=== PATIENT | male | born 1940 | race African-American/Black ===

== ENCOUNTER 2018-03-29 17:21 | Emergency (ER) | payer MEDICARE ==
[2018-03-29 17:33] VITALS: BP 130/66
--- NOTE | 2018-03-29 18:54 | ER Document Report ---
HPI - HPI Patient complains to provider of: Medication refill Onset: Other - Patient has last refill a month ago Onset/Duration: Gradual Quality of pain: No pain Severity: None Pain Level: Denies Context: 27-year-old male presents to ED for med refills. He states he was unable to get to the ID clinic today and his meds have all run out. He states he came here from [place] to stay with his son and he was supposed to stay for month and then go to [place] but is unable to go to [place] until the beginning of the year. He states all of his paperwork and prescriptions were sent to [place] and now he has run out of medications. Associated Symptoms: Other - Medications Exacerbated by: Denies Relieved by: Denies Similar symptoms previously: Yes Recently seen / treated by doctor: No Past Medical History - General Information source: Patient, Relative - Social History Smoking Status: Former Smoker Cigarette use (# per day): No Chew tobacco use (# tins/day): No Smoking Education Provided: No Frequency of alcohol use: None Drug Abuse: None Lives with: Family Family History: Reviewed & Not Pertinent Patient has suicidal ideation: No Patient has homicidal ideation: No - Past Medical History Cardiac Medical History: Reports: Hx Hypercholesterolemia, Hx Hypertension Pulmonary Medical History: Reports: None EENT Medical History: Reports: None Neurological Medical History: Reports: Hx Cerebrovascular Accident, Hx Seizures Endocrine Medical History: Reports: None Renal/ Medical History: Reports: Hx Benign Prostatic Hyperplasia, Hx Renal Insufficiency Malignancy Medical History: Reports None GI Medical History: Reports: Hx Gastroesophageal Reflux Disease, Hx Colonoscopy , Hx Endoscopy Musculoskeltal Medical History: Reports Hx Arthritis, Reports Hx Musculoskeletal Deformity Skin Medical History: Reports None Traumatic Medical History: Reports: None Infectious Medical History: Reports: None Vertical Provider Document - CONSTITUTIONAL Agree With Documented VS: Yes Exam Limitations: No Limitations General Appearance: WD/WN, No Apparent Distress - INFECTION CONTROL TRAVEL OUTSIDE OF THE [place] IN LAST 30 DAYS: No - HEENT HEENT: Atraumatic, Normal ENT Exam, Normocephalic - RESPIRATORY Respiratory: Breath Sounds Normal, No Respiratory Distress, Chest Non-Tender - CARDIOVASCULAR Cardiovascular: Regular Rate, Regular Rhythm - MUSCULOSKELETAL/EXTREMETIES Musculoskeletal/Extremeties: MAEW, FROM, Non-Tender - NEURO Level of Consciousness: Awake, Alert, Appropriate - DERM Integumentary: Warm, Dry, No Rash Course - Re-evaluation Re-evalutation: 03/29/18 21:24 Patient is seen today for med refills. He states that he tried to go to the ID and they were unable to seeing him today. He states he will not be able to get to the ID until next week sometime. He states he is out of all of his medications. He states that he was told by the ID would be at least 10 days before they could get his prescriptions filled and to him. - Vital Signs Vital signs: Temp Pulse Resp BP Pulse Ox 98.5 F 88 18 130/66 H 97 03/29/18 17:32 03/29/18 17:32 03/29/18 17:32 03/29/18 17:32 03/29/18 17:32 Discharge - Discharge Clinical Impression: Medication refill Condition: Stable Disposition: HOME, SELF-CARE Additional Instructions: He was seen today for medication refills for all your medications as you stated that she had not gotten a refill from ID and they told you would be about 10 days. Please follow-up with your primary doctor at the ID clinic to get these refilled before these medications ran out FOLLOW-UP CARE: If you have been referred to a physician for follow-up care, call the physician s office for an appointment as you were instructed or within the next two days. If you experience worsening or a significant change in your symptoms, notify the physician immediately or return to the Emergency Department at any time for re-evaluation. Prescriptions: Finasteride 5 mg PO QHS #14 tablet Phenytoin Sodium Extended [Dilantin] 400 mg PO QHS #14 capsule Terazosin HCl 10 mg PO QHS #14 capsule Amlodipine Besylate 5 mg PO DAILY #14 tab Atorvastatin Calcium [Lipitor] 80 mg PO DAILY #14 tablet Folic Acid 1 mg PO DAILY #14 tablet Furosemide [Lasix] 20 mg PO DAILY #14 tablet Metoprolol Succinate [Toprol Xl] 100 mg PO DAILY #14 tab.er.24h Oxybutynin Chloride [Oxybutynin Chloride ER] 10 mg PO DAILY #14 tab.er.24 Pantoprazole Sodium 40 mg PO DAILY #14 tablet.dr Forms: Elevated Blood Pressure
== END 2018-03-29 19:02 | disposition home or self-care (01) ==
LOC: ER 17:21
DX: Z76.0 Encounter for issue of repeat prescription (principal); I10 Essential (primary) hypertension; N40.0 Benign prostatic hyperplasia without lower urinary tract symptoms; E78.00 Pure hypercholesterolemia, unspecified; K21.9 Gastro-esophageal reflux disease without esophagitis; Z87.891 Personal history of nicotine dependence
CPT/HCPCS: 99281

== ENCOUNTER 2018-05-07 17:08 | Emergency (ER) | payer OTHER, MEDICARE ==
[2018-05-07 17:17] VITALS: BP 136/61
--- NOTE | 2018-05-07 17:37 | ER Document Report ---
ED General - General Chief Complaint: Medication Refill Stated Complaint: MEDICATION REFILL Time Seen by Provider: 05/07/18 17:32 Notes: 77-year-old male here requesting refill of his Keppra. He used to be on phenobarbital however was switched to Keppra by his doctor. [facility] He has put in paperwork to have them send him the correct medication, Keppra, however this has not yet occurred and they have not yet sent him his correct medication. They tried to be seen by his PCP, Dr. Moses, however his office was already closed. He denies any other symptoms or needs. No seizures. Last dose of Keppra was yesterday evening. TRAVEL OUTSIDE OF THE [place] IN LAST 30 DAYS: No - Related Data Allergies/Adverse Reactions: No Known Allergies Allergy (Verified 05/07/18 17:33) Past Medical History - Social History Smoking Status: Unknown if Ever Smoked Family History: Reviewed & Not Pertinent - Past Medical History Cardiac Medical History: Reports: Hx Hypercholesterolemia, Hx Hypertension Neurological Medical History: Reports: Hx Cerebrovascular Accident, Hx Seizures Renal/ Medical History: Reports: Hx Benign Prostatic Hyperplasia, Hx Renal Insufficiency. Denies: Hx Peritoneal Dialysis GI Medical History: Reports: Hx Gastroesophageal Reflux Disease, Hx Colonoscopy , Hx Endoscopy Musculoskeletal Medical History: Reports Hx Arthritis, Reports Hx Musculoskeletal Deformity Review of Systems - Review of Systems Notes: See history of present illness for pertinent positive review of systems; otherwise all review of systems have been reviewed and are negative Physical Exam - Vital signs Vitals: Temp Pulse Resp BP Pulse Ox 98.4 F 56 L 14 136/61 H 99 05/07/18 17:15 05/07/18 17:15 05/07/18 17:15 05/07/18 17:15 05/07/18 17:15 - Notes Notes: PHYSICAL EXAMINATION: GENERAL: Well-appearing and in no acute distress. HEAD: Atraumatic, normocephalic. EYES: extraocular movements intact, sclera anicteric, conjunctiva are normal. ENT: nares patent Moist mucous membranes. NECK: Normal range of motion LUNGS: CTAB and equal. No wheezes rales or rhonchi. HEART: Regular rate and rhythm without murmurs ABDOMEN: Soft, no tenderness. No facial grimacing/wincing upon palpation. No guarding, no rebound. EXTREMITIES: Normal range of motion, no pitting edema. No cyanosis. PSYCH: Normal mood, normal affect. SKIN: Warm, Dry, normal turgor, no rashes or lesions noted Course - Re-evaluation Re-evalutation: 05/07/18 17:35 MEDICAL DECISION MAKING: Medical screening exam provided and there is no emergency medical condition identified today Will give him a prescription refill for 7 days however instructed follow-up PCP early next week for extended refill Patient (and son present w pt) understands and agrees to the plan of care - Vital Signs Vital signs: Temp Pulse Resp BP Pulse Ox 98.4 F 56 L 14 136/61 H 99 05/07/18 17:15 05/07/18 17:15 05/07/18 17:15 05/07/18 17:15 05/07/18 17:15 Discharge - Discharge Clinical Impression: Medication refill Condition: Good Disposition: HOME, SELF-CARE Additional Instructions: You were seen in the emergency department at [facility]. You received a prescription for 7 days worth of Keppra. Please followup with your primary physician in the next few days for further management/evaluation. Please return to the emergency department for worsening of symptoms or any symptom that you deem to be concerning or life-threatening. Thank you for allowing us to be part of your care. Prescriptions: Levetiracetam [Keppra 500 mg Tablet] 500 mg PO Q12 #14 tablet
== END 2018-05-07 17:38 | disposition home or self-care (01) ==
LOC: ER 17:08
DX: Z76.0 Encounter for issue of repeat prescription (principal); I10 Essential (primary) hypertension
CPT/HCPCS: 99281

== ENCOUNTER 2018-05-21 08:45 | Inpatient (IN) | payer MEDICARE ==
[2018-05-21] MEDS ORDERED: NORMAL SALINE 1000 ML 1,000 ML IV ONE ×2 (09:10→11:36)
[2018-05-21 09:17] LABS: ABSOLUTE EOSINOPHILS # (AUTO) 0.1 10^3/uL (0.0-0.6); ABSOLUTE LYMPHOCYTES (AUTO) 1.5 10^3/uL (0.5-4.7); ABSOLUTE MONOCYTES (AUTO) 0.6 10^3/uL (0.1-1.4); ABSOLUTE NEUT (AUTO) 6.4 10^3/uL (1.7-8.2); BASOPHILS % (AUTO) 0.3 % (0-2); EOSINOPHILS % (AUTO) 1.4 % (0-6); HEMATOCRIT 32.1 % (37.9-51.0); HEMOGLOBIN 11.1 g/dL (13.5-17.0); LYMPHOCYTES % (AUTO) 17.9 % (13-45); MEAN CORPUSCULAR HEMOGLOBIN 30.4 pg (27.0-33.4); MEAN CORPUSCULAR HGB CONC 34.7 g/dL (32.0-36.0); MEAN CORPUSCULAR VOLUME 88 fl (80-97); MONOCYTES % (AUTO) 6.4 % (3-13); PLATELET COUNT 232 10^3/uL (150-450); RED BLOOD COUNT 3.65 10^6/uL (4.35-5.55); RED CELL DISTRIBUTION WIDTH 13.9 % (11.5-14.0); TOTAL CELLS COUNTED % (AUTO) 100 %; WHITE BLOOD COUNT 8.6 10^3/uL (4.0-10.5)
--- NOTE | 2018-05-21 09:18 | ER Document Report ---
ED General - General Chief Complaint: General Weakness Stated Complaint: WEAKNESS Time Seen by Provider: 05/21/18 08:53 TRAVEL OUTSIDE OF THE [place] IN LAST 30 DAYS: No - HPI Notes: Patient is a 77-year-old male with a history of hypertension, pacemaker placemend 2mos ago (on eliquis), hypercholesterolemia, reported seizures who presents to the ED by EMS complaining of generalized weakness, mild headache, and feeling of vision change in the left eye. Pt also has some left leg pain on occasion described as a spasm intermittently. Patient states that he has had a headache for the last 2 days, and has left eye vision changes chronically/ intermittently. Patient states that he is still eating and drinking, but does have a decreased p.o. intake. He is urinating normally and having normal bowel movements. Family is not sure if he has been taking his medicines correctly. Denies any drug allergies. Denies any alcohol or IV drug use. Pt reports having similar symptoms in the past when he has seizures. When asked about when he last had a seizure, pt states that he is actively having one while he is conversing with me and states that he was told by his doctor that his visual change in the left eye means he is having a seizure. Denies any fever, head injury, neck pain, changes in speech/mentation/hearing, URI, sore throat, chest pain, palpitations, syncope, cough, shortness of breath, wheeze, dyspnea, abdominal pain, nausea/vomiting/diarrhea, urinary retention, dysuria, hematuria , loss of control of bowel or bladder, numbness/tingling, saddle anesthesia, muscle paralysis, or rash. 0930: Spoke with daughter in-law who arrived. She states that he is here because he feels too weak to walk, which he is normally able to do and she believes that he is not taking his home meds appropriately. She states that they noticed medicines were in the wrong bottles when he took them out of the daily pill pack and try patient him back into old bottles. He did not take any medicines over the last day as he was directed not to by his family because they were not sure if they were correct or not. Pt does walk everyday outside all day usually. - Related Data Allergies/Adverse Reactions: No Known Allergies Allergy (Verified 05/21/18 09:00) Past Medical History - Social History Smoking Status: Never Smoker Family History: Reviewed & Not Pertinent - Past Medical History Cardiac Medical History: Reports: Hx Hypercholesterolemia, Hx Hypertension Neurological Medical History: Reports: Hx Cerebrovascular Accident, Hx Seizures Renal/ Medical History: Reports: Hx Benign Prostatic Hyperplasia, Hx Renal Insufficiency. Denies: Hx Peritoneal Dialysis GI Medical History: Reports: Hx Gastroesophageal Reflux Disease, Hx Colonoscopy , Hx Endoscopy Musculoskeletal Medical History: Reports Hx Arthritis, Reports Hx Musculoskeletal Deformity Past Surgical History: Reports: Hx Cardiac Surgery - pacemaker Review of Systems - Review of Systems -: Yes All other systems reviewed and negative Physical Exam - Vital signs Vitals: Temp Pulse Resp BP Pulse Ox 97.9 F 69 16 132/60 H 97 05/21/18 08:55 05/21/18 08:55 05/21/18 08:55 05/21/18 08:55 05/21/18 08:55 - Notes Notes: PHYSICAL EXAMINATION: accompanied by female nurse GENERAL: Well-appearing, well-nourished and in no acute distress. A&Ox4. Answers questions appropriately. HEAD: Atraumatic, normocephalic. Non-tender. No lambert sign EYES: Pupils equal round and reactive to light, extraocular movements intact, sclera anicteric, conjunctiva are normal. No nystagmus. Visual acuity is poor in both eyes equally (pt reports that he has glasses at home). ENT: EAC clear b/l. TM's intact b/l without erythema, fluid, or perforation. Nares patent and without discharge. oropharynx clear without exudates. No tonsilar hypertrophy or erythema. Moist mucous membranes. No sinus tenderness. NECK: Normal range of motion, supple without lymphadenopathy. No rigidity. No midline tenderness. LUNGS: Breath sounds clear to auscultation bilaterally and equal. No wheezes rales or rhonchi. HEART: Regular rate and rhythm without murmurs, rubs, gallops. ABDOMEN: Soft, nontender, nondistended abdomen. No guarding, no rebound. No masses appreciated. Normal bowel sounds present. No CVA tenderness bilaterally. Musculoskeletal: Ext b/l: FROM to passive/active. Strength 5+/5. No deficits noted. No bony tenderness of extremities. Back: FROM to passive/active. Strength 5+/5. No vertebral point tenderness, stepoffs, or deformities. Extremities: No cyanosis, clubbing, or edema b/l. Peripheral pulses 2+. Capillary refill less than 2 seconds. No leg asymmetry or ana maría sign. NEUROLOGICAL: NIH 0. GCS 15. Cranial nerves grossly intact. Normal speech. Normal sensory, motor exams. Reflexes 2+ b/l. LEONARDO's negative. Pronator drift negative. Heel/maki, finger/nose wnl. PSYCH: Normal mood, normal affect. SKIN: Warm, Dry, normal turgor, no rashes or lesions noted. Course - Re-evaluation Re-evalutation: 05/21/18 09:41 US performed to the left globe and since Dr. Lacy is not well versed in global US's, I did consult with Dr. Jones. US was unremarkable for acute pathology. 05/21/18 10:29 I did speak with Dr. Luna who reviewed this case at my desk. he recommends a repeat troponin at the 4 hour mina. Aspirin given. Hold on the statin as we do not want that to worsen any rhabdo should this be that; although, lower suspicion. We will consult again with Dr. Luna once those results have been received. Recheck on patient: he is still without any chest pain, sob, dyspnea, palpitations, syncope. 05/21/18 14:26 Troponin and CK are downtrending. Trop 0.416. I did call and speak with Dr. Luna would like this patient to be admitted. Spoke with Dr. Godwin who will come evaluate the patient and accepted to tele. Pt continues to be asymptomatic. Family/pt in agreement with plan. - Vital Signs Vital signs: Temp Pulse Resp BP Pulse Ox 97.9 F 69 31 H 164/84 H 100 05/21/18 08:55 05/21/18 08:55 05/21/18 13:01 05/21/18 13:01 05/21/18 13:01 - Laboratory Result Diagrams: 05/21/18 09:00 05/21/18 09:00 Laboratory results interpreted by me: 05/21/18 05/21/18 05/21/18 09:00 09:00 09:00 RBC 3.65 L Hgb 11.1 L Hct 32.1 L AST 104 H Alkaline Phosphatase 127 H Creatine Kinase 2904 H CK-MB (CK-2) 21.60 H 05/21/18 13:20 RBC Hgb Hct AST Alkaline Phosphatase Creatine Kinase 2784 H CK-MB (CK-2) Discharge - Discharge Clinical Impression: Elevated CK, Weakness Condition: Stable Disposition: ADMITTED INPATIENT Admitting Provider: Hospitalist - Dr. godwin Unit Admitted: Telemetry Referrals: EDWIN FLYNN MD [Primary Care Provider] - Follow up as needed
[2018-05-21 09:21] LABS: PROTHROMBIN TIME 14.8 SEC (11.4-15.4)
[2018-05-21 09:42] LABS: ALANINE AMINOTRANSFERASE 44 U/L (21-72); ALBUMIN 4.2 g/dL (3.5-5.0); ALKALINE PHOSPHATASE 127 U/L (38-126); ANION GAP 14 (5-19); ASPARTATE AMINO TRANSFERASE 104 U/L (17-59); BILIRUBIN,DIRECT 0.2 mg/dL (0.0-0.4); BILIRUBIN,TOTAL 1.2 mg/dL (0.2-1.3); BLOOD UREA NITROGEN 17 mg/dL (7-20); CALCIUM 9.4 mg/dL (8.4-10.2); CARBON DIOXIDE 23 mmol/L (22-30); CHLORIDE 102 mmol/L (98-107); GLUCOSE 98 mg/dL (75-110); POTASSIUM 3.8 mmol/L (3.6-5.0); SODIUM 139.1 mmol/L (137-145); TOTAL PROTEIN 8.1 g/dL (6.3-8.2)
[2018-05-21 09:50] LABS: CREATINE KINASE 2904 U/L (55-170)
--- NOTE | 2018-05-21 09:52 | RADIOLOGY REPORT (SQ) ---
EXAM DESCRIPTION: CT HEAD WITHOUT COMPLETED DATE/TIME: 05/21/2018 9:37 am REASON FOR STUDY: headache, vision change COMPARISON: None. TECHNIQUE: Axial images acquired through the brain without intravenous contrast. Images reviewed wi th bone, brain and subdural windows. Images stored on PACS. All CT scanners at this facility use dose modulation, iterative reconstruction, and/or weight based d osing when appropriate to reduce radiation dose to as low as reasonably achievable (ALARA). [facility]: Dose Right [facility]: CareDose [facility]: Dose Right [facility]: Teradose 4D [facility]: Smart Technologies RADIATION DOSE: CT Rad equipment meets quality standard of care and radiation dose reduction techniq ues were employed. CTDIvol: 53.2 mGy. DLP: 1097 mGy-cm. mGy. LIMITATIONS: None. FINDINGS: VENTRICLES: Mild ex vacuo dilatation right lateral ventricle related to previous surgery a nd encephalomalacia. Left ventricle normal. CEREBRUM: Encephalomalacia in the right temporal lobe. Overlying craniotomy, previous surgery here. No intracranial hemorrhage, mass or shift. Mild low density in the deep periventricular tissues con sistent with small vessel vasculopathy. CEREBELLUM: No masses. No hemorrhage. No alteration of density. No evidence for acute infarction. EXTRAAXIAL SPACES: No fluid collections. No masses. ORBITS AND GLOBE: No intra- or extraconal masses. Normal contour of globe without masses. CALVARIUM: No fracture. PARANASAL SINUSES: No fluid or mucosal thickening. SOFT TISSUES: No mass or hematoma. OTHER: No other significant finding. IMPRESSION: Chronic changes. 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 Small vessel disease. No acute ab normality. EVIDENCE OF ACUTE STROKE: NO. COMMENT: Quality ID # [id number]: Final reports with documentation of one or more dose reduction techniques (e.g., Automated exposure control, adjustment of the mA and/or kV according to patient size, use of iterative reconstruction technique) TECHNICAL DOCUMENTATION: JOB ID: [id number] [employer]- All Rights Reserved Reading location - IP/workstation name: [email or web address]
--- NOTE | 2018-05-21 09:56 | RADIOLOGY REPORT (SQ) ---
EXAM DESCRIPTION: CHEST SINGLE VIEW COMPLETED DATE/TIME: 05/21/2018 9:31 am REASON FOR STUDY: weak COMPARISON: None. NUMBER OF VIEWS: One view. TECHNIQUE: Single frontal radiographic view of the chest acquired. LIMITATIONS: None. FINDINGS: LUNGS AND PLEURA: Hyperinflated but clear. Possible COPD. No pneumothorax or pleural flu id. MEDIASTINUM AND HILAR STRUCTURES: No masses. Contour normal. HEART AND VASCULAR STRUCTURES: Mild cardiomegaly without failure. BONES: Osteopenic. Right rotator cuff tear. HARDWARE: Left transvenous pacer. OTHER: No other significant finding. IMPRESSION: No acute cardiopulmonary disease. TECHNICAL DOCUMENTATION: JOB ID: [id number] [employer]- All Rights Reserved Reading location - IP/workstation name: [email or web address]
[2018-05-21] MEDS ORDERED: ASPIRIN 81 MG TABLET, CHEWABLE PO ONE (10:19)
[2018-05-21] MEDS ORDERED: ONDANSETRON 4 MG TAB.RAPDIS PO PRN (14:59)
--- NOTE | 2018-05-21 15:36 | PDOC H&P ---
History of Present Illness Admission Date/PCP: 05/21/18 15:01 EDWIN FLYNN History of Present Illness: EVELIA HESS is a 77 year old black male who is originally from [place] recently relocated to [place] to live with his son. Patient has past medical history of hypertension, seizure disorder, congestive heart failure status post AICD placement February 2018 and reportedly also patients on Eliquis we do not know the reason at this point. Patient is not a great historian and brief history is obtained from the ER attending note and his form is done and [id number]. At about 3 PM yesterday he has seizure-like activity. He states "my eyes flicker and I see objects like broken film". His daughter-in- law suspect this patient might take several tablets of statin inadvertently. Normally at his baseline patient ambulates without walking aids. Last night patient has difficulty of walking complaints of chest pain. There is no report of fever, chills, nausea, palpitation or diaphoresis. His initial blood workup shows mildly elevated CPK which is 2700 and his troponin also the first set is 0.5 the next is 0.432. Dr. Luna has been consulted and patient is going to be admitted for observation Past Medical History Cardiac Medical History: Reports: Hyperlipidema, Hypertension Neurological Medical History: Reports: Seizures GI Medical History: Reports: Gastroesophageal Reflux Disease Musculoskeltal Medical History: Reports: Arthritis Past Surgical History Past Surgical History: Reports: Other - AICD placement Social History Smoking Status: Never Smoker Frequency of Alcohol Use: None Hx Recreational Drug Use: No Drugs: None - Advance Directive Resuscitation Status: Full Code Family History Family History: Reviewed & Not Pertinent Parental Family History Reviewed: Yes Children Family History Reviewed: Yes Sibling(s) Family History Reviewed.: Yes Medication/Allergy Home Medications: Amlodipine Besylate 5 mg PO DAILY #14 tab 03/29/18 Atorvastatin Calcium [Lipitor] 80 mg PO DAILY #14 tablet 03/29/18 Finasteride 5 mg PO QHS #14 tablet 03/29/18 Folic Acid 1 mg PO DAILY #14 tablet 03/29/18 Furosemide [Lasix] 20 mg PO DAILY #14 tablet 03/29/18 Metoprolol Succinate [Toprol Xl] 100 mg PO DAILY #14 tab.er.24h 03/29/18 Oxybutynin Chloride [Oxybutynin Chloride ER] 10 mg PO DAILY #14 tab.er.24 Pantoprazole Sodium 40 mg PO DAILY #14 tablet. 03/29/18 Terazosin HCl 10 mg PO QHS #14 capsule 03/29/18 Levetiracetam [Keppra 500 mg Tablet] 500 mg PO BID 05/07/18 Allergies/Adverse Reactions: No Known Allergies Allergy (Verified 05/21/18 09:00) Review of Systems Constitutional: PRESENT: fatigue, headache(s). ABSENT: chills, fever(s), weight gain, weight loss Cardiovascular: ABSENT: chest pain, dyspnea on exertion, edema, orthropnea, palpitations Gastrointestinal: ABSENT: abdominal pain, constipation, diarrhea, hematemesis, hematochezia, nausea, vomiting Neurological: PRESENT: as per HPI Psychiatric: PRESENT: as per HPI Physical Exam Vital Signs: Temp Pulse Resp BP Pulse Ox 97.9 F 69 31 H 164/84 H 100 05/21/18 08:55 05/21/18 08:55 05/21/18 13:01 05/21/18 13:01 05/21/18 13:01 General appearance: PRESENT: no acute distress Eye exam: PRESENT: conjunctiva pink Mouth exam: PRESENT: moist Neck exam: ABSENT: carotid bruit, JVD, lymphadenopathy, thyromegaly Respiratory exam: PRESENT: clear to auscultation ekta. ABSENT: rales, rhonchi, wheezes Cardiovascular exam: PRESENT: RRR. ABSENT: diastolic murmur, rubs, systolic murmur GI/Abdominal exam: PRESENT: normal bowel sounds, soft. ABSENT: distended, guarding, mass, organolmegaly, rebound, tenderness Neurological exam: PRESENT: alert, awake Results Impressions: Head CT 05/21/18 09:09 IMPRESSION: Chronic changes. 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 Small vessel disease. No acute abnormality. EVIDENCE OF ACUTE STROKE: NO. Chest X-Ray 05/21/18 09:10 IMPRESSION: No acute cardiopulmonary disease. Assessment & Plan - Diagnosis (1) Chest pain Qualifiers: Chest pain type: other chest pain Qualified Code(s): R07.89 - Other chest pain; R07.8 - Other chest pain Is this a current diagnosis for this admission?: Yes Plan: This patient has underlying risk factors for acute coronary syndrome will be admitted for observation. We will cycle his cardiac enzymes, repeat EKG and cardiac stress test per Dr. Luna (2) Rhabdomyolysis Qualifiers: Encounter type: initial encounter Is this a current diagnosis for this admission?: Yes Plan: Relatively mild. We will gently hydrate the patient says he has history of congestive heart failure (3) Seizure disorder Is this a current diagnosis for this admission?: Yes Plan: I will start his his home Keppra 500 mg twice daily. (4) Hypertension Qualifiers: Hypertension type: essential hypertension Qualified Code(s): I10 - Essential (primary) hypertension Is this a current diagnosis for this admission?: Yes Plan: Continue metoprolol (5) Systolic congestive heart failure Qualifiers: Heart failure chronicity: chronic Qualified Code(s): I50.22 - Chronic systolic (congestive) heart failure Plan: Compensated. Continue metoprolol succinate. Echo
[2018-05-21 17:09] LABS: AMORPHOUS SEDIMENT,URINE TRACE /HPF; APPEARANCE,URINE CLOUDY; BILIRUBIN,URINE NEGATIVE (NEGATIVE); COLOR,URINE YELLOW; GLUCOSE, URINE NEGATIVE (NEGATIVE); KETONES,URINE TRACE mg/dL (NEGATIVE); LEUKOCYTE ESTERASE,URINE LARGE (NEGATIVE); NITRITE,URINE NEGATIVE (NEGATIVE); PROTEIN,URINE 30 mg/dL (NEGATIVE); URINE SPECIFIC GRAVITY 1.017; UROBILINOGEN,URINE NEGATIVE mg/dL (<2.0)
[2018-05-21] MEDS ORDERED: APIXABAN 5 MG TABLET ONE (17:44)
[2018-05-21] MEDS: APIXABAN 5 MG TABLET PO SCH (17:53)
[2018-05-21] MEDS: NORMAL SALINE 1000 ML 1,000 ML IV PRN (17:53)
--- NOTE | 2018-05-21 19:40 | PDOC CONSULTATION ---
Consultation Consult Date: 05/21/18 Attending physician:: MARQUISE TALBOT Consult reason:: Abnormal troponin I History of Present Illness Admission Date/PCP: 05/21/18 15:01 EDWIN FLYNN Patient complains of: General fatigue and tiredness History of Present Illness: EVELIA HESS is a 77 year old black male who is originally from [place] recently relocated to [place] to live with his son. Patient has past medical history of hypertension, seizure disorder, congestive heart failure status post AICD placement February 2018 and reportedly also patients on Eliquis we do not know the reason at this point. Patient is not a great historian and brief history is obtained from the ER attending note and his form is done and [id number]. At about 3 PM yesterday he has seizure-like activity. He states "my eyes flicker and I see objects like broken film". His daughter-in- law suspect this patient might take several tablets of statin inadvertently. Normally at his baseline patient ambulates without walking aids. Last night patient has difficulty of walking complaints of chest pain. There is no report of fever, chills, nausea, palpitation or diaphoresis. His initial blood workup shows mildly elevated CPK which is 2700 and his troponin also the first set is 0.5 the next is 0.432. Dr. Luna has been consulted and patient is going to be admitted for observation. This history obtained by the hospitalist was reviewed and confirmed. When I saw him last night, patient denied ever having any chest pain. He does complain of being very fatigued and tired. He denied any prior history of myocardial infarction. Review of chest x-ray shows that he actually had a defibrillator rather than a pacemaker. Patient has been put on stress test list for tomorrow morning. This was explained to the patient. Past Medical History Cardiac Medical History: Reports: Congestive Heart Failure, Hyperlipidema, Hypertension Denies: Myocardial Infarction Pulmonary Medical History: Denies: Asthma, Bronchitis, Chronic Obstructive Pulmonary Disease (COPD), Pneumonia, Tuberculosis Neurological Medical History: Reports: Seizures Renal/ Medical History: Denies: End Stage Renal Disease GI Medical History: Reports: Gastroesophageal Reflux Disease Denies: Cirrhosis Musculoskeltal Medical History: Denies: Arthritis Psychiatric Medical History: Denies: Bipolar Disorder, Depression Hematology: Denies: Anemia, Bleeding Tendencies Past Surgical History Past Surgical History: Reports: Other - Pacemaker placement Social History Information Source: Patient Smoking Status: Never Smoker Frequency of Alcohol Use: None Hx Recreational Drug Use: No Drugs: None - Advance Directive Resuscitation Status: Full Code Surrogate healthcare decision maker:: Patient's son is the surrogate decision-maker Family History Family History: Hypertension Parental Family History Reviewed: Yes Children Family History Reviewed: Yes Sibling(s) Family History Reviewed.: Yes Medication/Allergy Home Medications: Amlodipine Besylate [Norvasc 5 mg Tablet] 5 mg PO DAILY 05/21/18 Apixaban [Eliquis 5 mg Tablet] 5 mg PO BID 05/21/18 Atorvastatin Calcium [Lipitor 40 mg Tablet] 40 mg PO QHS 05/21/18 Finasteride [Proscar 5 mg Tablet] 5 mg PO QHS 05/21/18 Folic Acid [Folvite 1 mg Tablet] 1 mg PO DAILY 05/21/18 Furosemide [Lasix 20 mg Tablet] 20 mg PO QAM 05/21/18 Levetiracetam [Keppra] 1,000 mg PO Q12 05/21/18 Metoprolol Succinate [Toprol Xl 50 mg Tab.sr] 50 mg PO DAILY 05/21/18 Oxybutynin Chloride [Ditropan Xl] 10 mg PO DAILY 05/21/18 Pantoprazole Sodium [Protonix] 40 mg PO Q6AM 05/21/18 Terazosin HCl [Hytrin] 10 mg PO QHS 05/21/18 Allergies/Adverse Reactions: No Known Allergies Allergy (Verified 05/21/18 15:32) Review of Systems Review of Systems: Please see history of present illness and past medical history as wall. Constitutional: No fever or chills reported. Claims to be marked fatigued and tired. Head : No recent chronic headaches, recent head injury. Eyes: No recent eye pain, diplopia, redness, discharge, acute visual changes. Ears: No recent chronic ear pain, acute hearing loss, ear discharge. Oral cavity: No recent ulcerations, bleeding, oral cavity discomfort. Neck: No recent acute neck pain reported. Hematologic: No recent easy bruising or bleeding. Lymphatic: No recent lymph node enlargement reported. Cardiovascular system review: See history of present illness. Respiratory system review: No hemoptysis or blood clots in the lungs reported. Mild Shortness of breath on exertion Gastrointestinal system review: Negative for any recent acute hematemesis, melena. Genitourinary system review: No recent acute or chronic hematuria, flank pain, UTI etc. reported. Skin system review: Negative for any recent abnormal bruising, no rash, no pruritus reported. Neurologic: No prior history of strokes, mini strokes, seizure disorder. Presents with questionable history of seizures. Psychologic: No history of major psychosis or major depression reported. Musculoskeletal: Minor aches and pains reported. No acute joint swelling reported. Endocrine: No recent polyuria, polydipsia, recent heat or cold intolerance. Physical Exam Vital Signs: Temp Pulse Resp BP Pulse Ox 99.3 F 75 16 151/80 H 100 05/21/18 17:13 05/21/18 18:48 05/21/18 17:13 05/21/18 17:13 05/21/18 17:13 Intake & Output 05/20/18 05/21/18 05/22/18 06:59 06:59 06:59 Intake Total 240 Balance 240 Exam: GENERAL: well-nourished and in no acute distress. Alert and oriented x3 HEAD: Atraumatic, normocephalic. EYES: Pupils equal round and reactive to light, extraocular movements intact, sclera anicteric, conjunctiva are normal. ENT: TMs normal, nares patent, oropharynx clear without exudates. Moist mucous membranes. No oral ulcerations or bleeding gums noted NECK: supple without lymphadenopathy. Trachea is central. No cervical or axillary lymphadenopathy noted. Carotids are 2+, JVD WNL LUNGS: Respiration seems nonlabored, no significant accessory muscle action noted. Breath sounds clear to auscultation bilaterally and equal noted. No wheezes rales or rhonchi noted. No significant dullness noted on percussion. CHEST: Palpation of the chest wall shows no significant chest wall tenderness. Pacemaker noted left-sided chest. HEART: [place] [employer]OR, No PSH, 1/6 JESSICA aortic area, 1/6 cavazos systolic murmur mitral area, no rubs, no gallops. ABDOMEN: Soft, no significant tenderness appreciated, normoactive bowel sounds. No guarding, no rebound. No rigidity noted . No masses appreciated. EXTREMITIES: Pedal pulses are 1-2+, no calf tenderness noted. No clubbing or cyanosis. negative pedal edema noted NEUROLOGICAL: Focused neurological exam showed no significant neurologic deficit. Normal speech, no focal weakness appreciated. PSYCH: Normal mood, normal affect. Judgment and insight within normal limits. SKIN: No significant ecchymosis, skin is noted to be warm. MUSCULOSKELETAL EXAM: No significant acute joint swelling noted. Results Laboratory Results: 05/21/18 05/21/18 16:55 16:55 Creatine Kinase 2633 H Troponin I 0.361 EKG Comments: Sinus rhythm, no acute ST-T wave changes are noted Impressions: Head CT 05/21/18 09:09 IMPRESSION: Chronic changes. 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 Small vessel disease. No acute abnormality. EVIDENCE OF ACUTE STROKE: NO. Chest X-Ray 05/21/18 09:10 IMPRESSION: No acute cardiopulmonary disease. Assessment & Plan - Diagnosis (1) Elevated troponin I level Is this a current diagnosis for this admission?: Yes (2) Elevated CK Is this a current diagnosis for this admission?: Yes (3) Dyspnea Qualifiers: Dyspnea type: dyspnea on exertion Qualified Code(s): R06.09 - Other forms of dyspnea Is this a current diagnosis for this admission?: Yes (4) Chest pain Qualifiers: Chest pain type: other chest pain Qualified Code(s): R07.89 - Other chest pain; R07.8 - Other chest pain Is this a current diagnosis for this admission?: Yes (5) Hypertension Qualifiers: Hypertension type: essential hypertension Qualified Code(s): I10 - Essential (primary) hypertension Is this a current diagnosis for this admission?: Yes (6) Rhabdomyolysis Qualifiers: Encounter type: initial encounter Is this a current diagnosis for this admission?: Yes (7) Seizure disorder Is this a current diagnosis for this admission?: Yes (8) Systolic congestive heart failure Qualifiers: Heart failure chronicity: chronic Qualified Code(s): I50.22 - Chronic systolic (congestive) heart failure Is this a current diagnosis for this admission?: Yes (9) Weakness Is this a current diagnosis for this admission?: Yes - Notes Notes: Recommend slow hydration, 2D echo, nuclear stress test when stable. EKG so far nonacute. Will repeat for any evolving changes. Elevated troponin I level: Exact etiology not clear but patient denying any chest pain to me. EKGs relatively unremarkable. To be further evaluated with a nuclear stress test and a 2D echocardiogram. Sometimes rhabdomyolysis can cause troponin I elevation. This is because of metabolic reasons. Patient could also have had transient hypotension, transient arrhythmias as cause of troponin I elevation. Recommend cardiac monitoring. Agree with IV fluids. Elevated total CK, possibly related to rhabdomyolysis: Continue hydration. Observe for any fluid overload. Dyspnea: Possibly multifactorial. Chest pain: This was reported to the hospitalist but patient currently denying. Anyway to be evaluated with a stress test and a 2D echocardiogram. Hypertension: Continue current antihypertensives. Rhabdomyolysis: Exact etiology not clear, treat with IV fluids. Follow renal functions. Seizure disorder: This is being strongly suspected. Consider EEG, neurology evaluation as needed. Systolic heart failure: Patient gives a history of it. Currently however there is no evidence of ongoing CHF. A 2D echocardiogram will be helpful in evaluating this further. Generalized weakness: This is multifactorial. Patient will benefit from OT PT evaluation and other lab work to evaluate generalized weakness. - Time Time Spent: 30 to 50 Minutes - CODE STATUS was discussed, patient remains full code. Surrogate decision-maker unchanged. Multiple medical problems were addressed. More than 50% of the time spent coordinating care, discussing management plans with involved caregivers. Management plans discussed with involved personnels. Medical decision making was of moderate to high complexity , patient's has multiple comorbidities. Medications reviewed and adjusted accordingly: Yes
[2018-05-21] MEDS: FINASTERIDE 5 MG TABLET PO SCH (21:37)
[2018-05-21] MEDS: LEVETIRACETAM 500 MG TABLET PO SCH (21:37)
[2018-05-21] MEDS: DOXAZOSIN MESYLATE 4 MG TABLET PO SCH (23:25)
[2018-05-21] MEDS: ACETAMINOPHEN 325 MG TABLET PO PRN (23:29)
--- NOTE | 2018-05-22 03:01 | EKG REPORT ---
SEVERITY:- OTHERWISE NORMAL ECG - SINUS ARRHYTHMIA, RATE 61-85 VENTRICULAR PREMATURE COMPLEX : Confirmed by: Michelle Rouse MD 22-May-2018 03:01:12
--- NOTE | 2018-05-22 03:02 | EKG REPORT ---
SEVERITY:- NORMAL ECG - SINUS RHYTHM : Confirmed by: Michelle Rouse MD 22-May-2018 03:01:31
[2018-05-22] MEDS: LANSOPRAZOLE 30 MG TAB.RAP.DR PO SCH (05:13)
[2018-05-22 06:25] LABS: HEMATOCRIT 30.3 % (37.9-51.0); HEMOGLOBIN 10.5 g/dL (13.5-17.0); MEAN CORPUSCULAR HEMOGLOBIN 30.8 pg (27.0-33.4); MEAN CORPUSCULAR HGB CONC 34.7 g/dL (32.0-36.0); MEAN CORPUSCULAR VOLUME 89 fl (80-97); PLATELET COUNT 186 10^3/uL (150-450); RED BLOOD COUNT 3.43 10^6/uL (4.35-5.55); RED CELL DISTRIBUTION WIDTH 13.6 % (11.5-14.0); WHITE BLOOD COUNT 7.1 10^3/uL (4.0-10.5)
[2018-05-22 07:10] LABS: ANION GAP 12 (5-19); BLOOD UREA NITROGEN 10 mg/dL (7-20); CALCIUM 8.9 mg/dL (8.4-10.2); CARBON DIOXIDE 23 mmol/L (22-30); CHLORIDE 101 mmol/L (98-107); CREATINE KINASE 1507 U/L (55-170); GLUCOSE 89 mg/dL (75-110); POTASSIUM 3.8 mmol/L (3.6-5.0); SODIUM 136.3 mmol/L (137-145)
[2018-05-22 07:22] LABS: CREATINE KINASE MB 5.39 ng/mL (<4.55); TROPONIN I 0.225 ng/mL
[2018-05-22] MEDS: FUROSEMIDE 20 MG TABLET PO SCH (09:02)
[2018-05-22] MEDS: NORMAL SALINE 1000 ML 1,000 ML IV PRN (13:18)
[2018-05-22] MEDS: APIXABAN 5 MG TABLET PO SCH ×2 (13:19→18:20)
[2018-05-22] MEDS: LEVETIRACETAM 500 MG TABLET PO SCH ×2 (13:19→21:36)
[2018-05-22] MEDS: FOLIC ACID 1 MG TABLET PO SCH (13:19)
[2018-05-22] MEDS: AMLODIPINE BESYLATE 5 MG TABLET PO SCH (13:19)
[2018-05-22] MEDS: METOPROLOL SUCCINATE 50 MG TAB.SR.24H PO SCH (13:19)
[2018-05-22] MEDS ORDERED: REGADENOSON INJ 0.4 MG/5 ML DISP.SYRIN IV ONE (14:19)
--- NOTE | 2018-05-22 15:09 | DRAGON STRESS TEST REPORT ---
INTRAVENOUS LEXISCAN CARDIOLITE STRESS TEST USING SINGLE PHOTON EMMISION COMPUTERIZED TOMOGRAPHIC. DATE OF PROCEDURE: May 22, 2018, INDICATION : Abnormal troponin I, questionable history of chest pain CARDIAC RISK FACTORS: Hypertension RESTING EKG: Sinus rhythm without any baseline ST-T wave changes STRESS EKG: No significant ST segment changes noted with LexiScan bolus REASON FOR TERMINATION: Protocol. PROCEDURE REPORT: Baseline heart rate 79 beats per minute with blood pressure of 143/44. Patient had no significant complaints. Patient was bolused with Lexiscan 0.4 mg intravenously followed by saline bolus. Heart rate at 2 minutes post bolus 106 with a blood pressure of 135/71. 3 minutes post bolus heart rate 109 with blood pressure of 133/64. No significant EKG changes were noted. Patient had no significant complaints during the procedure or postprocedure. CONCLUSIONS: Normal EKG and hemodynamic response to IV LexiScan. NUCLEAR DATA: At rest the patient was given 10.97 millicuries of technetium 99 sestamibi injected intravenously. As per protocol rest gated SPECT images were obtained. On day of stress test, the patient was given intravenous LexiScan at a dose of 0.4 mg in 5 mL intravenously, followed by flush with normal saline. Subsequently the stress dose of 31.8 millicuries of technetium 99 sestamibi was injected intravenously. As per protocol stress gated images were obtained. NUCLEAR INTERPRETATION: Both raw and processed data were used for interpretation. Visual, qualitative, computer-generated quantitative data was used. There was good myocardial uptake of technetium compound. Motion artifact and soft tissue attenuations were noted. Increased visceral uptake was noted. No definitive areas of transient perfusion defect noted, except for borderline decreased uptake in the basal inferior septal area, possibly artifactual, overall SDS is 3 therefore unlikely to be significant. No definitive areas of fixed perfusion defect or scars noted. EKG gated imaging showed LV EF at 65 %, rest and stress gated EF similar visually. T. I D. ratio was 0.87. Lung heart ratio noted to be within normal limits 0.28. No significant extracardiac and abnormal radiotracer activities were noted. RV free wall uptake was noted to be WNL. IMPRESSION: Also refer to comments under nuclear interpretation. Also test results needs to be interpreted in the context of pretest probability. 1. No definitive areas of transient perfusion defect noted, except for borderline decreased uptake in the basal inferior septal area, possibly artifactual, overall SDS is 3 therefore unlikely to be significant. 2. There is no definitive scintigraphic evidence of myocardial infarction/scar. 3. EKG gated imaging shows left ventricular ejection fraction of approx. 65 %. 4. Clinical correlation requested as occasionally single vessel disease or balanced ischemia could be missed. In approximately 10% of the cases Lexiscan may not cause adequate vasodilatory stress. RECOMMENDATIONS: Aggressive risk factor modification and medical management. Further evaluation may be needed if continued symptoms or other high risk indicators are noted on clinical evaluation. Close cardiology follow-up is also recommended. Clinical correlation with echocardiogram derived ejection fraction. Inability to exercise by itself can lead to increased cardiovascular event risks. Consider cardiology consultation and or follow-up if clinically indicated. I am available for cardiology evaluation and consultation if requested by the toolroom checker, unless patient already has a manager transfer. Dr. Carol Luna. MRCP Board certified in cardiology and sleep medicine. Board certified in nuclear cardiology, adult echocardiography. ARPAN
[2018-05-22 15:48] LABS: CREATINE KINASE MB 4.75 ng/mL (<4.55)
[2018-05-22 15:55] LABS: TROPONIN I 0.145 ng/mL
--- NOTE | 2018-05-22 17:01 | PDOC PROGRESS REPORT ---
Subjective Progress Note for:: 05/22/18 Subjective:: This is 78 years old black male patient brought to ER with chief complaint of seizure attack, chest pain, generalized weakness and shortness of breath. His initial blood work shows elevated troponin and subsequent elevated troponin has trended down. This morning patient has cardiac nuclear stress test and the results pending. Currently patient does not have chest pain and his vital signs are stable. But he complains of left leg weakness. CT head is negative but MRI of the brain current. And because of his pacemaker. Reason For Visit: CHEST PAIN, GENERALIZED WEAKNESS,DIFFICULTY Physical Exam Vital Signs: Temp Pulse Resp BP Pulse Ox 99.7 F 86 18 123/65 100 05/22/18 15:47 05/22/18 15:47 05/22/18 15:47 05/22/18 15:47 05/22/18 15:47 Intake & Output 05/21/18 05/22/18 05/23/18 06:59 06:59 06:59 Intake Total 240 1000 Output Total 444 Balance -204 1000 Weight 72.1 kg Results Laboratory Results: 05/22/18 06:09 05/22/18 06:09 05/22/18 05/22/18 06:09 06:09 WBC 7.1 RBC 3.43 L Hgb 10.5 L Hct 30.3 L MCV 89 MCH 30.8 MCHC 34.7 RDW 13.6 Plt Count 186 Sodium 136.3 L Potassium 3.8 Chloride 101 Carbon Dioxide 23 Anion Gap 12 BUN 10 Creatinine 0.63 Est GFR ( Amer) > 60 Est GFR (Non-Af Amer) > 60 Glucose 89 Calcium 8.9 Magnesium 1.7 05/21/18 05/21/18 05/21/18 16:55 16:55 22:50 Creatine Kinase 2633 H CK-MB (CK-2) Troponin I 0.361 0.295 05/22/18 05/22/18 05/22/18 06:09 06:09 14:30 Creatine Kinase 1507 H 1529 H CK-MB (CK-2) 5.39 H Troponin I 0.225 05/22/18 14:30 Creatine Kinase CK-MB (CK-2) 4.75 H Troponin I 0.145 Impressions: Head CT 05/21/18 09:09 IMPRESSION: Chronic changes. 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 Small vessel disease. No acute abnormality. EVIDENCE OF ACUTE STROKE: NO. Chest X-Ray 05/21/18 09:10 IMPRESSION: No acute cardiopulmonary disease. Assessment & Plan - Diagnosis (1) Chest pain Qualifiers: Chest pain type: other chest pain Qualified Code(s): R07.89 - Other chest pain; R07.8 - Other chest pain Is this a current diagnosis for this admission?: Yes Plan: Patient undergone cardiac stress test. His troponin is trending down. (2) Rhabdomyolysis Qualifiers: Encounter type: initial encounter Is this a current diagnosis for this admission?: Yes Plan: We will continue hydration (3) Seizure disorder Is this a current diagnosis for this admission?: Yes Plan: Thank you for the dose of his Keppra to thousand milligrams twice daily. (4) Hypertension Qualifiers: Hypertension type: essential hypertension Qualified Code(s): I10 - Essential (primary) hypertension Is this a current diagnosis for this admission?: Yes Plan: Continue metoprolol (5) Systolic congestive heart failure Qualifiers: Heart failure chronicity: chronic Qualified Code(s): I50.22 - Chronic systolic (congestive) heart failure Is this a current diagnosis for this admission?: Yes Plan: Compensated. Continue metoprolol succinate. Echo
--- NOTE | 2018-05-22 17:50 | PDOC PROGRESS REPORT ---
Subjective Progress Note for:: 05/22/18 Subjective:: Patient seems to be doing better with gradual improvement. Pt is denying any chest arm or neck discomfort. Patient denying any PND, orthopnea. Patient denied any sustained palpitations, dizziness, syncope, near syncope. Patient denying any fever chills. Patient denying any other significant discomfort. Patient noted to have possible seizure disorder with tightening of his left side of body and some tremors on the right side. Patient today underwent nuclear stress testing without any complications. Patient is maintaining sinus rhythm. Review of systems: Rest review of systems negative. Medications: Medications have been reviewed. Reason For Visit: CHEST PAIN, GENERALIZED WEAKNESS,DIFFICULTY Physical Exam Vital Signs: Temp Pulse Resp BP Pulse Ox 99.7 F 86 18 123/65 100 05/22/18 15:47 05/22/18 15:47 05/22/18 15:47 05/22/18 15:47 05/22/18 15:47 Intake & Output 05/21/18 05/22/18 05/23/18 06:59 06:59 06:59 Intake Total 240 1000 Output Total 444 Balance -204 1000 Weight 72.1 kg Exam: GENERAL: well-nourished and in no acute distress. Alert and oriented x3 HEAD: Atraumatic, normocephalic. EYES: Pupils equal round and reactive to light, extraocular movements intact, sclera anicteric, conjunctiva are normal. ENT: TMs normal, nares patent, oropharynx clear without exudates. Moist mucous membranes. No oral ulcerations or bleeding gums noted NECK: supple without lymphadenopathy. Trachea is central. No cervical or axillary lymphadenopathy noted. Carotids are 2+, JVD WNL LUNGS: Respiration seems nonlabored, no significant accessory muscle action noted. Breath sounds clear to auscultation bilaterally and equal noted. No wheezes rales or rhonchi noted. No significant dullness noted on percussion. CHEST: Palpation of the chest wall shows no significant chest wall tenderness. Pacemaker noted left-sided chest. 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 ABDOMEN: Soft, no significant tenderness appreciated, normoactive bowel sounds. No guarding, no rebound. No rigidity noted . No masses appreciated. EXTREMITIES: Pedal pulses are 1-2+, no calf tenderness noted. No clubbing or cyanosis. negative pedal edema noted NEUROLOGICAL: Focused neurological exam showed no significant neurologic deficit. Normal speech, no focal weakness appreciated. PSYCH: Normal mood, normal affect. Judgment and insight within normal limits. SKIN: No significant ecchymosis, skin is noted to be warm. MUSCULOSKELETAL EXAM: No significant acute joint swelling noted. Results Laboratory Results: 05/22/18 06:09 05/22/18 06:09 05/22/18 05/22/18 06:09 06:09 WBC 7.1 RBC 3.43 L Hgb 10.5 L Hct 30.3 L MCV 89 MCH 30.8 MCHC 34.7 RDW 13.6 Plt Count 186 Sodium 136.3 L Potassium 3.8 Chloride 101 Carbon Dioxide 23 Anion Gap 12 BUN 10 Creatinine 0.63 Est GFR ( Amer) > 60 Est GFR (Non-Af Amer) > 60 Glucose 89 Calcium 8.9 Magnesium 1.7 05/21/18 05/21/18 05/21/18 16:55 16:55 22:50 Creatine Kinase 2633 H CK-MB (CK-2) Troponin I 0.361 0.295 05/22/18 05/22/18 05/22/18 06:09 06:09 14:30 Creatine Kinase 1507 H 1529 H CK-MB (CK-2) 5.39 H Troponin I 0.225 05/22/18 14:30 Creatine Kinase CK-MB (CK-2) 4.75 H Troponin I 0.145 EKG Comments: Telemetry strips showed sinus rhythm without any sustained tachycardia or bradycardia. Impressions: Head CT 05/21/18 09:09 IMPRESSION: Chronic changes. 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 Small vessel disease. No acute abnormality. EVIDENCE OF ACUTE STROKE: NO. Chest X-Ray 05/21/18 09:10 IMPRESSION: No acute cardiopulmonary disease. Assessment & Plan - Diagnosis (1) Elevated troponin I level Is this a current diagnosis for this admission?: Yes (2) Elevated CK Is this a current diagnosis for this admission?: Yes (3) Dyspnea Qualifiers: Dyspnea type: dyspnea on exertion Qualified Code(s): R06.09 - Other forms of dyspnea Is this a current diagnosis for this admission?: Yes (4) Chest pain Qualifiers: Chest pain type: other chest pain Qualified Code(s): R07.89 - Other chest pain; R07.8 - Other chest pain Is this a current diagnosis for this admission?: Yes (5) Hypertension Qualifiers: Hypertension type: essential hypertension Qualified Code(s): I10 - Essential (primary) hypertension Is this a current diagnosis for this admission?: Yes (6) Rhabdomyolysis Qualifiers: Encounter type: initial encounter Is this a current diagnosis for this admission?: Yes (7) Seizure disorder Is this a current diagnosis for this admission?: Yes (8) Systolic congestive heart failure Qualifiers: Heart failure chronicity: chronic Qualified Code(s): I50.22 - Chronic systolic (congestive) heart failure Is this a current diagnosis for this admission?: Yes (9) Weakness Is this a current diagnosis for this admission?: Yes - Notes Notes: Elevated troponin I level: Exact etiology not clear but patient denying any chest pain to me. EKGs relatively unremarkable. Sometimes rhabdomyolysis can cause troponin I elevation. This is because of metabolic reasons. Patient could also have had transient hypotension, transient arrhythmias as cause of troponin I elevation. Recommend cardiac monitoring. Agree with IV fluids. Nuclear stress test was negative for any significant ischemia. No fixed defect noted. EKG gated imaging shows normal LVEF. Elevated total CK, possibly related to rhabdomyolysis: Continue hydration. Observe for any fluid overload. Patient seems to have seizure disorder as cause of elevated total CK and cause of rhabdomyolysis Dyspnea: Possibly multifactorial. Currently is stable. Chest pain: This was reported to the hospitalist but patient currently denying. Has been chest pain-free and did not complain of any chest pain to me. Nuclear stress test was negative for any pharmacologic stress-induced ischemia. Hypertension: Continue current antihypertensives. Rhabdomyolysis: Exact etiology not clear, treat with IV fluids. Follow renal functions. Possibly could also be related to seizure disorder. Seizure disorder: This is being strongly suspected. Consider EEG, neurology evaluation as needed. Congestive heart failure: Patient gives a history of it. Currently however there is no evidence of ongoing CHF. EKG gated imaging shows normal LVEF. Generalized weakness: This is multifactorial. Patient will benefit from OT PT evaluation and other lab work to evaluate generalized weakness. Will sign off. Please reconsult if needed. - Time Time with patient: Greater than 35 minutes - Patient was seen multiple times. Total time exceeds 40 minutes. In the morning nuclear stress test procedure, risks benefits, alternatives were discussed. Patient seen during the stress test. Patient also seen after stress test when results were discussed with the patient in detail. Patient's questions were answered. Nuclear stress test results were discussed with the patient. Patient was informed that no definitive evidence of pharmacologic stress-induced ischemia noted. No definite fixed defects were noted. Patient informed that occasionally significant single vessel disease or balanced ischemia could be missed. However based on the current study results, would recommend aggressive risk factor modification and medical therapy. It may also be worthwhile to consider evaluation or empiric management of other causes of chest pain. Should no other cause be found and if persistent in having chest pain, then cardiac catheterization should be considered. Right now, recommendations are for aggressive risk factor modification and medical management. More than 50% of the time spent coordinating care, discussing management plans with involved caregivers. Management plans discussed with involved personnels. Medical decision making was of moderate to high complexity, patient's has multiple comorbidities. Medications reviewed and adjusted accordingly: Yes
[2018-05-22] MEDS: ACETAMINOPHEN 325 MG TABLET PO PRN (18:20)
[2018-05-22] MEDS: OXYBUTYNIN CHLORIDE 5 MG TABLET PO SCH (18:20)
--- NOTE | 2018-05-22 18:29 | EKG REPORT ---
SEVERITY:- NORMAL ECG - SINUS RHYTHM : Confirmed by: Michelle Rouse MD 22-May-2018 18:29:27
[2018-05-22 21:16] LABS: CREATINE KINASE MB 2.79 ng/mL (<4.55)
[2018-05-22 21:20] LABS: TROPONIN I 0.149 ng/mL
[2018-05-22] MEDS: DOXAZOSIN MESYLATE 4 MG TABLET PO SCH (21:35)
[2018-05-22] MEDS: FINASTERIDE 5 MG TABLET PO SCH (21:36)
[2018-05-23] MEDS: ACETAMINOPHEN 325 MG TABLET PO PRN ×2 (03:34→15:13)
[2018-05-23] MEDS: OXYBUTYNIN CHLORIDE 5 MG TABLET PO SCH ×2 (05:45→17:38)
[2018-05-23] MEDS: LANSOPRAZOLE 30 MG TAB.RAP.DR PO SCH (05:45)
--- NOTE | 2018-05-23 09:02 | EKG REPORT ---
SEVERITY:- BORDERLINE ECG - SINUS WITH APCs PROBABLE LEFT ATRIAL ABNORMALITY : Confirmed by: Aminata Luna 23-May-2018 09:01:57
--- NOTE | 2018-05-23 09:40 | XCELERA REPORT ---
[address] [address] Transthoracic Echocardiogram Report Name: EVELIA EHSS Age: 77 yrs Gender: Male : 1940 Patient Status: Inpatient Patient Location: [address] [place] [address] Study Date: 05/22/2018 07:35 PM Procedure: A complete two-dimensional transthoracic echocardiogram was performed (2D, M-mode, spectral and color flow Doppler). The study was technically adequate with some images being suboptimal in quality. Reason For Study: cad Ordering Physician: AMINATA MUÑIZ Performed By: Farhana Bhat Interpretation Summary The left ventricular ejection fraction is normal. Doppler measurements suggest pseudonormalized left ventricular relaxation, which is associated with grade II/IV or mild to moderate diastolic dysfunction There is mild concentric left ventricular hypertrophy. The left ventricle is grossly normal size. Wall motion cannot be accurately commented on, but no definite regional wall motion abnormalities noted. The right ventricular systolic function is normal. The right ventricle is mild to moderately dilated. The right atrium is mild to moderately dilated. The left atrial size is normal. There is a trace amount of mitral regurgitation There is no mitral valve stenosis. There is no aortic valve stenosis No aortic regurgitation is present. There is a trace to mild amount of tricuspid regurgitation Tricuspid regurgitation jet envelope not well defined to measure RV systolic pressure accurately. The aortic root is not well visualized but is probably normal size. The inferior vena cava was not well visualized Small pericardial effusion. There are no echocardiographic or Doppler indications for cardiac tamponade MMode/2D Measurements & Calculations RVDd: 2.7 cm LVIDd: 4.1 cm FS: 39.5 % Ao root diam: 3.2 cm IVSd: 1.1 cm LVIDs: 2.5 cm EDV(Teich): 74.1 ml Ao root area: 8.2 cm2 LVPWd: 1.1 cm ESV(Teich): 21.9 ml EF(Teich): 70.5 % LVOT diam: 1.7 cm LVOT area: 2.2 cm2 Doppler Measurements & Calculations MV E max flor: MV dec slope: Ao V2 max: LV V1 max P.8 cm/sec 112.6 cm/sec 1.6 mmHg MV A max flor: 158.0 cm/sec2 Ao max PG: LV V1 max: 71.1 cm/sec MV dec time: 5.1 mmHg 64.2 cm/sec MV E/A: 0.56 0.25 sec SANDRA(V,D): 1.2 cm2 PA V2 max: TR max flor: 70.7 cm/sec 214.0 cm/sec PA max PG: TR max P.3 mmHg 2.0 mmHg Left Ventricle The left ventricle is grossly normal size. There is mild concentric left ventricular hypertrophy. The left ventricular ejection fraction is normal. Doppler measurements suggest pseudonormalized left ventricular relaxation, which is associated with grade II/IV or mild to moderate diastolic dysfunction. Wall motion cannot be accurately commented on, but no definite regional wall motion abnormalities noted. Right Ventricle The right ventricle is mild to moderately dilated. The right ventricular systolic function is normal. Atria The right atrium is mild to moderately dilated. The left atrial size is normal. Interarterial septum not well visualized and not well dopplered. Cannot comment on ASD/PFO presence. Mitral Valve The mitral valve is grossly normal. There is no mitral valve stenosis. There is a trace amount of mitral regurgitation. Aortic Valve The aortic valve is mildly calcified. There is no aortic valve stenosis. No aortic regurgitation is present. Tricuspid Valve The tricuspid valve is not well visualized, but is grossly normal. There is no tricuspid stenosis. There is a trace to mild amount of tricuspid regurgitation. Tricuspid regurgitation jet envelope not well defined to measure RV systolic pressure accurately. Pulmonic Valve The pulmonic valve is not well visualized. Great Vessels The aortic root is not well visualized but is probably normal size. The inferior vena cava was not well visualized. Effusions Small pericardial effusion. There are no echocardiographic or Doppler indications for cardiac tamponade. : AMINATA MUÑIZ > Aminata Muñiz
[2018-05-23] MEDS: METOPROLOL SUCCINATE 50 MG TAB.SR.24H PO SCH (11:41)
[2018-05-23] MEDS: LEVETIRACETAM 500 MG TABLET PO SCH ×2 (11:41→21:54)
[2018-05-23] MEDS: APIXABAN 5 MG TABLET PO SCH ×2 (11:41→17:38)
[2018-05-23] MEDS: FUROSEMIDE 20 MG TABLET PO SCH (11:41)
[2018-05-23] MEDS: AMLODIPINE BESYLATE 5 MG TABLET PO SCH (11:41)
[2018-05-23] MEDS: FOLIC ACID 1 MG TABLET PO SCH (11:41)
[2018-05-23 15:21] LABS: CREATINE KINASE MB 1.62 ng/mL (<4.55); TROPONIN I 0.085 ng/mL
[2018-05-23 15:40] LABS: ABSOLUTE BASOPHILS # (AUTO) 0.1 10^3/uL (0.0-0.2); ABSOLUTE EOSINOPHILS # (AUTO) 0.1 10^3/uL (0.0-0.6); ABSOLUTE LYMPHOCYTES (AUTO) 1.2 10^3/uL (0.5-4.7); ABSOLUTE MONOCYTES (AUTO) 0.6 10^3/uL (0.1-1.4); BASOPHILS % (AUTO) 0.7 % (0-2); EOSINOPHILS % (AUTO) 1.4 % (0-6); HEMATOCRIT 30.9 % (37.9-51.0); LYMPHOCYTES % (AUTO) 17.7 % (13-45); MEAN CORPUSCULAR HEMOGLOBIN 30.7 pg (27.0-33.4); MEAN CORPUSCULAR HGB CONC 35.5 g/dL (32.0-36.0); MEAN CORPUSCULAR VOLUME 87 fl (80-97); MONOCYTES % (AUTO) 9.2 % (3-13); PLATELET COUNT 189 10^3/uL (150-450); RED BLOOD COUNT 3.56 10^6/uL (4.35-5.55); RED CELL DISTRIBUTION WIDTH 13.5 % (11.5-14.0); TOTAL CELLS COUNTED % (AUTO) 100 %
--- NOTE | 2018-05-23 15:45 | PDOC PROGRESS REPORT ---
Subjective Progress Note for:: 05/23/18 Subjective:: Pt seen and has been having persistent fever since admission and Tmax in the past 24 hours was 101.4 at 3.00am. He denied cough, chest pain, dysuria, frequency, nausea/vomiting. His CK has decreased to 1291; Troponin to 014. We will get fever workup and repeat labs. His cardiolyte stress test dis not reveal any ischemia. Pt should be switched to inpatient status due to al these issues. Reason For Visit: CHEST PAIN, GENERALIZED WEAKNESS,DIFFICULTY Physical Exam Vital Signs: Temp Pulse Resp BP Pulse Ox 100.1 F 79 16 120/63 99 05/23/18 11:04 05/23/18 11:04 05/23/18 11:04 05/23/18 11:04 05/23/18 11:04 Intake & Output 05/22/18 05/23/18 05/24/18 06:59 06:59 06:59 Intake Total 240 2960 Output Total 444 350 Balance -204 2610 Weight 72.1 kg 69.3 kg General appearance: PRESENT: no acute distress, cooperative, well-developed, well-nourished Head exam: PRESENT: atraumatic, normocephalic Eye exam: PRESENT: EOMI, PERRLA Ear exam: PRESENT: normal external ear exam, TM's normal bilaterally Mouth exam: PRESENT: neck supple, tongue midline Neck exam: PRESENT: full ROM Respiratory exam: PRESENT: symmetrical Cardiovascular exam: PRESENT: irregular rhythm, +S1, +S2 Pulses: PRESENT: +1 pedal pulses bilateral GI/Abdominal exam: PRESENT: normal bowel sounds, soft Rectal exam: PRESENT: deferred Extremities exam: PRESENT: full ROM Musculoskeletal exam: PRESENT: full ROM Neurological exam: PRESENT: alert, awake, oriented to person, oriented to place , oriented to time Results Laboratory Results: 05/22/18 06:09 05/22/18 06:09 05/21/18 05/21/18 05/21/18 16:55 16:55 22:50 Creatine Kinase 2633 H CK-MB (CK-2) Troponin I 0.361 0.295 05/22/18 05/22/18 05/22/18 06:09 06:09 14:30 Creatine Kinase 1507 H 1529 H CK-MB (CK-2) 5.39 H Troponin I 0.225 05/22/18 05/22/18 05/22/18 14:30 20:30 20:30 Creatine Kinase 1291 H CK-MB (CK-2) 4.75 H 2.79 Troponin I 0.145 0.149 Impressions: Head CT 05/21/18 09:09 IMPRESSION: Chronic changes. 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 Small vessel disease. No acute abnormality. EVIDENCE OF ACUTE STROKE: NO. Chest X-Ray 05/21/18 09:10 IMPRESSION: No acute cardiopulmonary disease. Assessment & Plan - Diagnosis (1) Rhabdomyolysis Qualifiers: Encounter type: initial encounter Is this a current diagnosis for this admission?: Yes Plan: Ct with IV fluid normal saline at 75cc/hr cautiously because of hx of CHF. Monitor CK, CMP daily. (2) Fever Qualifiers: Fever type: unspecified Qualified Code(s): R50.9 - Fever, unspecified Is this a current diagnosis for this admission?: Yes Plan: We will get repeat chest xray, CBC; get UA, urine culture and blood culturex2. (3) Seizure disorder Is this a current diagnosis for this admission?: Yes Plan: Ct with Keppra 1000 mg q12h po. Seizure and falls precautions. (4) Chest pain Is this a current diagnosis for this admission?: Yes (5) Chest pain Qualifiers: Chest pain type: other chest pain Qualified Code(s): R07.89 - Other chest pain; R07.8 - Other chest pain Is this a current diagnosis for this admission?: Yes Plan: Ct with serial cardiac enzymes monitoring and is trending downwards. Cardiolyte stress test is negative and cardiology has signed off. (7) Congestive heart failure with left ventricular diastolic dysfunction Qualifiers: Congestive heart failure chronicity: chronic Qualified Code(s): I50.32 - Chronic diastolic (congestive) heart failure Is this a current diagnosis for this admission?: Yes Plan: Ct with Lasix 20 mg qd po; Metoprolol succinate 50 mg qd po. Monitor chemistries daily; strict input/output chart. (8) Hypertension Qualifiers: Hypertension type: unspecified Qualified Code(s): I10 - Essential (primary ) hypertension Is this a current diagnosis for this admission?: Yes Plan: Ct with Metoprolol succinate 50mg qd po; Amodipine 5 mg qd po;2 g sodium diet. (9) Hyperlipidemia Qualifiers: Hyperlipidemia type: mixed hyperlipidemia Qualified Code(s): E78.2 - Mixed hyperlipidemia Is this a current diagnosis for this admission?: Yes Plan: Hold Atorvastatin 80 mg qhs due to rhabdomyolysis; ct with 200mg cholesterol diet. (10) Atrial fibrillation Qualifiers: Atrial fibrillation type: paroxysmal Qualified Code(s): I48.0 - Paroxysmal atrial fibrillation Is this a current diagnosis for this admission?: Yes Plan: Ct with Metoprolol succinate 50 mg qd po; Eliquis 5 mg po BID. (11) BPH (benign prostatic hyperplasia) Qualifiers: Lower urinary tract symptom detail: unspecified Is this a current diagnosis for this admission?: Yes Plan: Ct with Proscar 5mg qhs po; Doxazosin 8 mg qhs po. (12) Overactive bladder Is this a current diagnosis for this admission?: Yes Plan: Ct with Oxybutynin 5 mg q12h po. (13) DVT prophylaxis Is this a current diagnosis for this admission?: Yes Plan: Ct with Eliquis 5 mg BID po; SCD. - Time Time Spent with patient: 35 or more minutes Medications reviewed and adjusted accordingly: Yes Within: within 72 hours
--- NOTE | 2018-05-23 15:57 | RADIOLOGY REPORT (SQ) ---
EXAM DESCRIPTION: CHEST 2 VIEWS COMPLETED DATE/TIME: 05/23/2018 3:48 pm REASON FOR STUDY: Persistent fever to rule out pneumonia COMPARISON: None. EXAM PARAMETERS: NUMBER OF VIEWS: two views TECHNIQUE: Digital Frontal and Lateral radiographic views of the chest acquired. RADIATION DOSE: NA LIMITATIONS: none FINDINGS: LUNGS AND PLEURA: Small pleural effusions are suggested on the lateral view. No infiltrat e. No mass is seen. MEDIASTINUM AND HILAR STRUCTURES: No masses or contour abnormalities. HEART AND VASCULAR STRUCTURES: Heart size is borderline. There is no evidence failure. BONES: No acute findings. HARDWARE: Pacemaker. OTHER: No other significant finding. IMPRESSION: Cardiomegaly without failure. There appear to be small pleural effusions on the lateral view. TECHNICAL DOCUMENTATION: JOB ID: [id number] [employer]- All Rights Reserved Reading location - IP/workstation name: [email or web address]
[2018-05-23 15:58] LABS: ALANINE AMINOTRANSFERASE 38 U/L (21-72); ALBUMIN 3.7 g/dL (3.5-5.0); ALKALINE PHOSPHATASE 104 U/L (38-126); ANION GAP 13 (5-19); ASPARTATE AMINO TRANSFERASE 68 U/L (17-59); BILIRUBIN,DIRECT 0.2 mg/dL (0.0-0.4); BILIRUBIN,TOTAL 1.2 mg/dL (0.2-1.3); BLOOD UREA NITROGEN 14 mg/dL (7-20); CALCIUM 8.7 mg/dL (8.4-10.2); CARBON DIOXIDE 24 mmol/L (22-30); CHLORIDE 98 mmol/L (98-107); CREATINE KINASE 825 U/L (55-170); GLUCOSE 94 mg/dL (75-110); SODIUM 134.8 mmol/L (137-145); TOTAL PROTEIN 7.3 g/dL (6.3-8.2)
[2018-05-23] MEDS: LEVOFLOXACIN 500 MG/D5W RTU 500 MG/100 ML RTUPB IV SCH (17:39)
[2018-05-23 18:31] LABS: AMORPHOUS SEDIMENT,URINE TRACE /HPF; APPEARANCE,URINE CLOUDY; BILIRUBIN,URINE NEGATIVE (NEGATIVE); COLOR,URINE YELLOW; GLUCOSE, URINE NEGATIVE (NEGATIVE); KETONES,URINE 20 mg/dL (NEGATIVE); LEUKOCYTE ESTERASE,URINE LARGE (NEGATIVE); NITRITE,URINE POSITIVE (NEGATIVE); PROTEIN,URINE 30 mg/dL (NEGATIVE); URINE SPECIFIC GRAVITY 1.018; UROBILINOGEN,URINE NEGATIVE mg/dL (<2.0)
[2018-05-23] MEDS: FINASTERIDE 5 MG TABLET PO SCH (21:54)
[2018-05-23] MEDS: DOXAZOSIN MESYLATE 4 MG TABLET PO SCH (21:54)
[2018-05-24] MEDS: ACETAMINOPHEN 325 MG TABLET PO PRN ×2 (00:24→23:23)
[2018-05-24] MEDS: OXYBUTYNIN CHLORIDE 5 MG TABLET PO SCH ×2 (05:31→18:59)
[2018-05-24] MEDS: LANSOPRAZOLE 30 MG TAB.RAP.DR PO SCH (05:31)
[2018-05-24 07:18] LABS: ABSOLUTE EOSINOPHILS # (AUTO) 0.1 10^3/uL (0.0-0.6); ABSOLUTE LYMPHOCYTES (AUTO) 1.1 10^3/uL (0.5-4.7); ABSOLUTE MONOCYTES (AUTO) 0.6 10^3/uL (0.1-1.4); ABSOLUTE NEUT (AUTO) 4.2 10^3/uL (1.7-8.2); BASOPHILS % (AUTO) 0.4 % (0-2); EOSINOPHILS % (AUTO) 2.4 % (0-6); HEMATOCRIT 27.8 % (37.9-51.0); HEMOGLOBIN 9.9 g/dL (13.5-17.0); LYMPHOCYTES % (AUTO) 18.1 % (13-45); MEAN CORPUSCULAR HEMOGLOBIN 30.8 pg (27.0-33.4); MEAN CORPUSCULAR HGB CONC 35.5 g/dL (32.0-36.0); MEAN CORPUSCULAR VOLUME 87 fl (80-97); MONOCYTES % (AUTO) 10.5 % (3-13); PLATELET COUNT 172 10^3/uL (150-450); RED BLOOD COUNT 3.21 10^6/uL (4.35-5.55); RED CELL DISTRIBUTION WIDTH 13.3 % (11.5-14.0); SEGMENTED NEUTROPHILS % (AUTO) 68.6 % (42-78); TOTAL CELLS COUNTED % (AUTO) 100 %; WHITE BLOOD COUNT 6.2 10^3/uL (4.0-10.5)
[2018-05-24 07:47] LABS: ALANINE AMINOTRANSFERASE 29 U/L (21-72); ALKALINE PHOSPHATASE 84 U/L (38-126); ANION GAP 9 (5-19); ASPARTATE AMINO TRANSFERASE 57 U/L (17-59); BILIRUBIN,DIRECT 0.3 mg/dL (0.0-0.4); BILIRUBIN,TOTAL 1.1 mg/dL (0.2-1.3); BLOOD UREA NITROGEN 12 mg/dL (7-20); CALCIUM 8.4 mg/dL (8.4-10.2); CARBON DIOXIDE 23 mmol/L (22-30); CHLORIDE 99 mmol/L (98-107); CREATINE KINASE 733 U/L (55-170); GLUCOSE 86 mg/dL (75-110); POTASSIUM 3.6 mmol/L (3.6-5.0); TOTAL PROTEIN 6.4 g/dL (6.3-8.2)
[2018-05-24 07:53] LABS: CREATINE KINASE MB 1.65 ng/mL (<4.55); TROPONIN I 0.071 ng/mL
[2018-05-24] MEDS: APIXABAN 5 MG TABLET PO SCH ×2 (13:17→18:59)
[2018-05-24] MEDS: FUROSEMIDE 20 MG TABLET PO SCH (13:17)
[2018-05-24] MEDS: AMLODIPINE BESYLATE 5 MG TABLET PO SCH (13:17)
[2018-05-24] MEDS: LEVETIRACETAM 500 MG TABLET PO SCH ×2 (13:17→21:51)
[2018-05-24] MEDS: FOLIC ACID 1 MG TABLET PO SCH (13:17)
[2018-05-24] MEDS: LEVOFLOXACIN 500 MG/D5W RTU 500 MG/100 ML RTUPB IV SCH (13:18)
[2018-05-24] MEDS: METOPROLOL SUCCINATE 50 MG TAB.SR.24H PO SCH (13:18)
--- NOTE | 2018-05-24 16:14 | PDOC PROGRESS REPORT ---
Subjective Progress Note for:: 05/24/18 Subjective:: He no longer has fever and his urinalysis showed positive nitrite and leukocyte esterase. His sodium is 131. Pt seem to be very anxious and concerned about seizure activity.Dr Key had reviewed his telemetry strip and confirmed there was no evidence of Ventricular tachycardia, but rather an artifact. We will get PT/OT consult due to conditioning. We will ct him on IV Levaquin pending urine and blood cultures results. Reason For Visit: CHEST PAIN,WEAKNESS,ABNORMAL TROPONIN Physical Exam Vital Signs: Temp Pulse Resp BP Pulse Ox 98.7 F 74 16 131/69 H 61 L 05/24/18 12:18 05/24/18 12:18 05/24/18 12:18 05/24/18 12:18 05/24/18 12:18 Intake & Output 05/23/18 05/24/18 05/25/18 06:59 06:59 06:59 Intake Total 734 Balance 734 Weight 69.7 kg General appearance: PRESENT: no acute distress, cooperative, well-developed, well-nourished Head exam: PRESENT: atraumatic, normocephalic Eye exam: PRESENT: EOMI, PERRLA Ear exam: PRESENT: TM's normal bilaterally Mouth exam: PRESENT: moist, tongue midline Neck exam: PRESENT: full ROM Respiratory exam: PRESENT: clear to auscultation ekta, symmetrical Cardiovascular exam: PRESENT: irregular rhythm, +S1, +S2 Pulses: PRESENT: +1 pedal pulses bilateral GI/Abdominal exam: PRESENT: normal bowel sounds Rectal exam: PRESENT: deferred Neurological exam: PRESENT: alert, awake, oriented to person, oriented to place , oriented to time Psychiatric exam: PRESENT: normal mood Results Laboratory Results: 05/24/18 06:45 05/24/18 06:45 05/23/18 05/23/18 05/24/18 15:31 16:50 06:45 WBC 7.0 6.2 RBC 3.56 L 3.21 L Hgb 11.0 L 9.9 L Hct 30.9 L 27.8 L MCV 87 87 MCH 30.7 30.8 MCHC 35.5 35.5 RDW 13.5 13.3 Plt Count 189 172 Seg Neutrophils % 71.0 68.6 Lymphocytes % 17.7 18.1 Monocytes % 9.2 10.5 Eosinophils % 1.4 2.4 Basophils % 0.7 0.4 Absolute Neutrophils 5.0 4.2 Absolute Lymphocytes 1.2 1.1 Absolute Monocytes 0.6 0.6 Absolute Eosinophils 0.1 0.1 Absolute Basophils 0.1 0.0 Sodium Potassium Chloride Carbon Dioxide Anion Gap BUN Creatinine Est GFR ( Amer) Est GFR (Non-Af Amer) Glucose Calcium Total Bilirubin AST ALT Alkaline Phosphatase Total Protein Albumin Urine Color YELLOW Urine Appearance CLOUDY Urine pH 6.0 Ur Specific [place] 1.018 Urine Protein 30 H Urine Glucose (UA) NEGATIVE Urine Ketones 20 H Urine Blood MODERATE H Urine Nitrite POSITIVE H Ur Leukocyte Esterase LARGE H Urine WBC (Auto) >182 Urine RBC (Auto) 6 05/24/18 06:45 WBC RBC Hgb Hct MCV MCH MCHC RDW Plt Count Seg Neutrophils % Lymphocytes % Monocytes % Eosinophils % Basophils % Absolute Neutrophils Absolute Lymphocytes Absolute Monocytes Absolute Eosinophils Absolute Basophils Sodium 131.0 L Potassium 3.6 Chloride 99 Carbon Dioxide 23 Anion Gap 9 BUN 12 Creatinine 0.55 Est GFR ( Amer) > 60 Est GFR (Non-Af Amer) > 60 Glucose 86 Calcium 8.4 Total Bilirubin 1.1 AST 57 ALT 29 Alkaline Phosphatase 84 Total Protein 6.4 Albumin 3.0 L Urine Color Urine Appearance Urine pH Ur Specific [place] Urine Protein Urine Glucose (UA) Urine Ketones Urine Blood Urine Nitrite Ur Leukocyte Esterase Urine WBC (Auto) Urine RBC (Auto) 05/24/18 05/24/18 06:45 06:45 Creatine Kinase 733 H CK-MB (CK-2) 1.65 Troponin I 0.071 Impressions: Head CT 05/21/18 09:09 IMPRESSION: Chronic changes. 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 Small vessel disease. No acute abnormality. EVIDENCE OF ACUTE STROKE: NO. Chest X-Ray 05/23/18 00:00 IMPRESSION: Cardiomegaly without failure. There appear to be small pleural effusions on the lateral view. Assessment & Plan - Diagnosis (1) Rhabdomyolysis Qualifiers: Encounter type: initial encounter Is this a current diagnosis for this admission?: Yes Plan: Ct with IV fluid normal saline at 75cc/hr cautiously because of hx of CHF. Monitor CK, CMP daily. (2) Urinary tract infection Qualifiers: Urinary tract infection type: site unspecified Is this a current diagnosis for this admission?: Yes Plan: Ct with Levaquin 500mg daily IV; Tylenol 650 mg q4h prn po. F/u urine culture and blood culture report. (3) Fever Qualifiers: Fever type: unspecified Qualified Code(s): R50.9 - Fever, unspecified Is this a current diagnosis for this admission?: Yes (4) Seizure disorder Is this a current diagnosis for this admission?: Yes Plan: Ct with Keppra 1000 mg q12h po. Seizure and falls precautions. (5) Chest pain Is this a current diagnosis for this admission?: Yes (6) Chest pain Qualifiers: Chest pain type: other chest pain Qualified Code(s): R07.89 - Other chest pain; R07.8 - Other chest pain Is this a current diagnosis for this admission?: Yes Plan: Ct with serial cardiac enzymes monitoring and is trending downwards. Cardiolyte stress test is negative and cardiology has signed off. (8) Congestive heart failure with left ventricular diastolic dysfunction Qualifiers: Congestive heart failure chronicity: chronic Qualified Code(s): I50.32 - Chronic diastolic (congestive) heart failure Is this a current diagnosis for this admission?: Yes Plan: Ct with Lasix 20 mg qd po; Metoprolol succinate 50 mg qd po. Monitor chemistries daily; strict input/output chart. (9) Hyponatremia Is this a current diagnosis for this admission?: Yes Plan: Ct with IV fluids normal saline at 75 cc/hr cautiously due to hx of CHF. Ct with fluid restrictions. monitor his chemistries daily. (10) Hypertension Qualifiers: Hypertension type: unspecified Qualified Code(s): I10 - Essential (primary ) hypertension Is this a current diagnosis for this admission?: Yes Plan: Ct with Metoprolol succinate 50mg qd po; Amodipine 5 mg qd po;2 g sodium diet. (11) Hyperlipidemia Qualifiers: Hyperlipidemia type: mixed hyperlipidemia Qualified Code(s): E78.2 - Mixed hyperlipidemia Is this a current diagnosis for this admission?: Yes Plan: Hold Atorvastatin 80 mg qhs due to rhabdomyolysis; ct with 200mg cholesterol diet. (12) Atrial fibrillation Qualifiers: Atrial fibrillation type: paroxysmal Qualified Code(s): I48.0 - Paroxysmal atrial fibrillation Is this a current diagnosis for this admission?: Yes Plan: Ct with Metoprolol succinate 50 mg qd po; Eliquis 5 mg po BID. (13) BPH (benign prostatic hyperplasia) Qualifiers: Lower urinary tract symptom detail: unspecified Is this a current diagnosis for this admission?: Yes Plan: Ct with Proscar 5mg qhs po; Doxazosin 8 mg qhs po. (14) Overactive bladder Is this a current diagnosis for this admission?: Yes Plan: Ct with Oxybutynin 5 mg q12h po. (15) DVT prophylaxis Is this a current diagnosis for this admission?: Yes Plan: Ct with Eliquis 5 mg BID po; SCD. - Inpatient Certification Medical Necessity: Failure to Improve With Outpatient Therapy, Significant Comorbidiites Make Outpatient Treatment Too Risky, Need Close Monitoring Due to Risk of Patient Decompensation, Need For IV Fluids, Need For Continuous Telemetry Monitoring, Need for IV Antibiotics
[2018-05-24] MEDS: DOXAZOSIN MESYLATE 4 MG TABLET PO SCH (21:52)
[2018-05-24] MEDS: FINASTERIDE 5 MG TABLET PO SCH (21:52)
[2018-05-25] MEDS: LANSOPRAZOLE 30 MG TAB.RAP.DR PO SCH (05:19)
[2018-05-25] MEDS: OXYBUTYNIN CHLORIDE 5 MG TABLET PO SCH ×2 (05:19→18:04)
[2018-05-25 06:31] LABS: ABSOLUTE EOSINOPHILS # (AUTO) 0.2 10^3/uL (0.0-0.6); ABSOLUTE LYMPHOCYTES (AUTO) 1.4 10^3/uL (0.5-4.7); ABSOLUTE MONOCYTES (AUTO) 0.6 10^3/uL (0.1-1.4); ABSOLUTE NEUT (AUTO) 3.3 10^3/uL (1.7-8.2); BASOPHILS % (AUTO) 0.7 % (0-2); HEMATOCRIT 29.6 % (37.9-51.0); HEMOGLOBIN 10.6 g/dL (13.5-17.0); LYMPHOCYTES % (AUTO) 25.2 % (13-45); MEAN CORPUSCULAR HEMOGLOBIN 30.8 pg (27.0-33.4); MEAN CORPUSCULAR HGB CONC 35.7 g/dL (32.0-36.0); MEAN CORPUSCULAR VOLUME 86 fl (80-97); MONOCYTES % (AUTO) 11.3 % (3-13); PLATELET COUNT 169 10^3/uL (150-450); RED BLOOD COUNT 3.43 10^6/uL (4.35-5.55); RED CELL DISTRIBUTION WIDTH 13.5 % (11.5-14.0); SEGMENTED NEUTROPHILS % (AUTO) 59.8 % (42-78); TOTAL CELLS COUNTED % (AUTO) 100 %; WHITE BLOOD COUNT 5.5 10^3/uL (4.0-10.5)
[2018-05-25 06:40] LABS: ALANINE AMINOTRANSFERASE 36 U/L (21-72); ALBUMIN 3.3 g/dL (3.5-5.0); ALKALINE PHOSPHATASE 93 U/L (38-126); ANION GAP 11 (5-19); ASPARTATE AMINO TRANSFERASE 48 U/L (17-59); BILIRUBIN,DIRECT 0.2 mg/dL (0.0-0.4); BLOOD UREA NITROGEN 11 mg/dL (7-20); CALCIUM 8.5 mg/dL (8.4-10.2); CARBON DIOXIDE 25 mmol/L (22-30); CHLORIDE 97 mmol/L (98-107); CREATINE KINASE 396 U/L (55-170); GLUCOSE 90 mg/dL (75-110); POTASSIUM 3.6 mmol/L (3.6-5.0); SODIUM 132.6 mmol/L (137-145); TOTAL PROTEIN 6.6 g/dL (6.3-8.2)
[2018-05-25 06:59] LABS: CREATINE KINASE MB 1.11 ng/mL (<4.55); TROPONIN I 0.046 ng/mL
[2018-05-25] MEDS: LEVOFLOXACIN 500 MG/D5W RTU 500 MG/100 ML RTUPB IV SCH (10:31)
[2018-05-25] MEDS: NORMAL SALINE 1000 ML 1,000 ML IV PRN (10:34)
[2018-05-25] MEDS: FUROSEMIDE 20 MG TABLET PO SCH (10:35)
[2018-05-25] MEDS: FOLIC ACID 1 MG TABLET PO SCH (10:36)
[2018-05-25] MEDS: METOPROLOL SUCCINATE 50 MG TAB.SR.24H PO SCH (10:36)
[2018-05-25] MEDS: LEVETIRACETAM 500 MG TABLET PO SCH (10:36)
[2018-05-25] MEDS: AMLODIPINE BESYLATE 5 MG TABLET PO SCH (10:36)
[2018-05-25] MEDS: APIXABAN 5 MG TABLET PO SCH ×2 (10:37→18:04)
--- NOTE | 2018-05-25 13:08 | EEG PRO FEE REPORT ---
EEG INTERPRETATION PATIENT NAME: EVELIA HESS ROOM#: [id number] ORDER#: [id number] DATE OF STUDY: 05/25/2018 : 1940 REFERRING MD: Mikey Moses MD MEDICATIONS: Keppra, Toprol, Zofran, Ditropan, Tylenol, Norvasc, Eliquis, Cardura, Proscar, Folic acid, Lasix, Prevacid, Levaquin History This is a 77 year old right handed man with a history of TIA, seizures since 1967, hypertension, congestive heart failure, pacemaker, brain bleed, admitted with increased CK. This EEG was requested for seizure like activity. EEG Interpretation This EEG was recorded in the awake state only. The awake EEG is characterized by asymmetry with a posterior dominant rhythm on left only noted of approximately 8.5 Hz. There were periodic lateralized epileptiform discharges {PLEDs} of approximately 1 Hz almost continuously over the right hemisphere, maximal in the posterior quadrant. They waxed and waned with sharp intermixed with more smoothly contoured wave forms alternating, without clear evolution. There was no clinical correlate noted. The technologist noted right hand shaking as well as head shaking but no EEG correlate was noted. Photic stimulation resulted in no significant changes. There was significant artifact throughout the recording impairing interpretation. The EKG showed periods of an irregular rhythm with PVCs noted. EEG Classification 1. Right periodic discharges, some sharp, most consistent with PLEDs 2. Asymmetry with posterior dominant rhythm on left only 3. Cardiac arrhythmia 4. Technically poor study EEG Impression This EEG is severely abnormal. Right PLEDs were noted and are most commonly associated with a structural lesion. They may be ictal, interictal or post ictal. Treatment with antiepileptic drugs may be considered as clinically indicated. Clinical and imaging correlation is recommended. INTERPRETING PHYSICIAN: ANNA MOHAN M.D. /: MTEFFT TT: 1245 ID: [id number] /: [id number] TD: [id number] JOB: [id number] cc:ANNA MOHAN M.D. E. . GROUP, > [facility]
[2018-05-25] MEDS ORDERED: VANCOMYCIN HCL 0 MG in DEXTROSE 5%-WATER 250 ML IV NR (15:30)
--- NOTE | 2018-05-25 16:06 | PDOC PROGRESS REPORT ---
Subjective Progress Note for:: 05/25/18 Subjective:: Pt had EEG that was abnormal- showed PLEDs(periodic lateralized epileptiform discharges) which may indicate structural lesion. Pt had normal CT head, but he cannot have MRI due to pacemaker. His urine culture showed Staphylococcus aureus. We will add Vancomycin IV in addition to Levaquin IV in keeping with sensitivity result.We will try to get neurology consult. Reason For Visit: CHEST PAIN,WEAKNESS,ABNORMAL TROPONIN Physical Exam Vital Signs: Temp Pulse Resp BP Pulse Ox 101.1 F H 73 17 138/65 H 100 05/25/18 14:56 05/25/18 14:56 05/25/18 14:56 05/25/18 14:56 05/25/18 14:56 Intake & Output 05/24/18 05/25/18 05/26/18 06:59 06:59 06:59 Intake Total 734 1082 100 Balance 734 1082 100 Weight 69.7 kg 70.8 kg General appearance: PRESENT: no acute distress, cooperative, well-developed, well-nourished Head exam: PRESENT: atraumatic, normocephalic Eye exam: PRESENT: EOMI, PERRLA Mouth exam: PRESENT: moist, tongue midline Neck exam: PRESENT: full ROM Respiratory exam: PRESENT: clear to auscultation ekta, symmetrical Cardiovascular exam: PRESENT: irregular rhythm, +S1, +S2 Pulses: PRESENT: +2 pedal pulses bilateral GI/Abdominal exam: PRESENT: normal bowel sounds, soft Neurological exam: PRESENT: alert, awake, oriented to person, oriented to place , oriented to time Psychiatric exam: PRESENT: normal mood Results Laboratory Results: 05/25/18 05:40 05/25/18 05:40 05/25/18 05/25/18 05:40 05:40 WBC 5.5 RBC 3.43 L Hgb 10.6 L Hct 29.6 L MCV 86 MCH 30.8 MCHC 35.7 RDW 13.5 Plt Count 169 Seg Neutrophils % 59.8 Lymphocytes % 25.2 Monocytes % 11.3 Eosinophils % 3.0 Basophils % 0.7 Absolute Neutrophils 3.3 Absolute Lymphocytes 1.4 Absolute Monocytes 0.6 Absolute Eosinophils 0.2 Absolute Basophils 0.0 Sodium 132.6 L Potassium 3.6 Chloride 97 L Carbon Dioxide 25 Anion Gap 11 BUN 11 Creatinine 0.53 Est GFR ( Amer) > 60 Est GFR (Non-Af Amer) > 60 Glucose 90 Calcium 8.5 Total Bilirubin 1.0 AST 48 ALT 36 Alkaline Phosphatase 93 Total Protein 6.6 Albumin 3.3 L 05/23/18 16:50 Catheterized Urine Urine Culture - Final Staphylococcus Aureus 05/24/18 05/24/18 05/25/18 06:45 06:45 05:40 Creatine Kinase 733 H 396 H CK-MB (CK-2) 1.65 Troponin I 0.071 05/25/18 05:40 Creatine Kinase CK-MB (CK-2) 1.11 Troponin I 0.046 Impressions: Head CT 05/21/18 09:09 IMPRESSION: Chronic changes. 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 Small vessel disease. No acute abnormality. EVIDENCE OF ACUTE STROKE: NO. Chest X-Ray 05/23/18 00:00 IMPRESSION: Cardiomegaly without failure. There appear to be small pleural effusions on the lateral view. Assessment & Plan - Diagnosis (1) Rhabdomyolysis Qualifiers: Encounter type: initial encounter Is this a current diagnosis for this admission?: Yes Plan: Ct with IV fluid normal saline at 75cc/hr cautiously because of hx of CHF. Monitor CK, CMP daily. (2) Urinary tract infection Qualifiers: Urinary tract infection type: site unspecified Is this a current diagnosis for this admission?: Yes Plan: Ct with Levaquin 500mg daily IV;Add Vancomycin IV as per [facility] protocol. Tylenol 650 mg q4h prn po.F/u blood culture report. (3) Fever Qualifiers: Fever type: unspecified Qualified Code(s): R50.9 - Fever, unspecified Is this a current diagnosis for this admission?: Yes (4) Seizure disorder Is this a current diagnosis for this admission?: Yes Plan: Ct with Keppra 1000 mg q12h po. Seizure and falls precautions. F/u neurology consult. (5) Chest pain Is this a current diagnosis for this admission?: Yes (6) Chest pain Qualifiers: Chest pain type: other chest pain Qualified Code(s): R07.89 - Other chest pain; R07.8 - Other chest pain Is this a current diagnosis for this admission?: Yes Plan: Ct with serial cardiac enzymes monitoring and is trending downwards. Cardiolyte stress test is negative and cardiology has signed off. (8) Congestive heart failure with left ventricular diastolic dysfunction Qualifiers: Congestive heart failure chronicity: chronic Qualified Code(s): I50.32 - Chronic diastolic (congestive) heart failure Is this a current diagnosis for this admission?: Yes Plan: Ct with Lasix 20 mg qd po; Metoprolol succinate 50 mg qd po. Monitor chemistries daily; strict input/output chart. (9) Hyponatremia Is this a current diagnosis for this admission?: Yes Plan: Ct with IV fluids normal saline at 75 cc/hr cautiously due to hx of CHF. Ct with fluid restrictions. monitor his chemistries daily. (10) Hypertension Qualifiers: Hypertension type: unspecified Qualified Code(s): I10 - Essential (primary ) hypertension Is this a current diagnosis for this admission?: Yes Plan: Ct with Metoprolol succinate 50mg qd po; Amodipine 5 mg qd po;2 g sodium diet. (11) Hyperlipidemia Qualifiers: Hyperlipidemia type: mixed hyperlipidemia Qualified Code(s): E78.2 - Mixed hyperlipidemia Is this a current diagnosis for this admission?: Yes Plan: Hold Atorvastatin 80 mg qhs due to rhabdomyolysis; ct with 200mg cholesterol diet. (12) Atrial fibrillation Qualifiers: Atrial fibrillation type: paroxysmal Qualified Code(s): I48.0 - Paroxysmal atrial fibrillation Is this a current diagnosis for this admission?: Yes Plan: Ct with Metoprolol succinate 50 mg qd po; Eliquis 5 mg po BID. (13) BPH (benign prostatic hyperplasia) Qualifiers: Lower urinary tract symptom detail: unspecified Is this a current diagnosis for this admission?: Yes Plan: Ct with Proscar 5mg qhs po; Doxazosin 8 mg qhs po. (14) Overactive bladder Is this a current diagnosis for this admission?: Yes Plan: Ct with Oxybutynin 5 mg q12h po. (15) DVT prophylaxis Is this a current diagnosis for this admission?: Yes Plan: Ct with Eliquis 5 mg BID po; SCD.
[2018-05-25] MEDS: ACETAMINOPHEN 325 MG TABLET PO PRN (18:02)
[2018-05-25] MEDS: VANCOMYCIN HCL 750 MG in DEXTROSE 5%-WATER 250 ML IV SCH (18:17)
[2018-05-25] MEDS: FINASTERIDE 5 MG TABLET PO SCH (21:21)
[2018-05-25] MEDS: DOXAZOSIN MESYLATE 4 MG TABLET PO SCH (21:21)
[2018-05-25] MEDS: LEVETIRACETAM ORAL SOLN 500 MG/5 ML UDCUP PO SCH (21:21)
[2018-05-26] MEDS: VANCOMYCIN HCL 750 MG in DEXTROSE 5%-WATER 250 ML IV SCH ×3 (01:42→19:16)
[2018-05-26] MEDS: OXYBUTYNIN CHLORIDE 5 MG TABLET PO SCH ×2 (05:21→19:16)
[2018-05-26] MEDS: LANSOPRAZOLE 30 MG TAB.RAP.DR PO SCH (05:22)
[2018-05-26 05:45] LABS: ALANINE AMINOTRANSFERASE 28 U/L (21-72); ALBUMIN 3.4 g/dL (3.5-5.0); ALKALINE PHOSPHATASE 86 U/L (38-126); ANION GAP 11 (5-19); ASPARTATE AMINO TRANSFERASE 46 U/L (17-59); BILIRUBIN,DIRECT 0.3 mg/dL (0.0-0.4); BILIRUBIN,TOTAL 0.8 mg/dL (0.2-1.3); BLOOD UREA NITROGEN 9 mg/dL (7-20); CALCIUM 8.4 mg/dL (8.4-10.2); CARBON DIOXIDE 27 mmol/L (22-30); CHLORIDE 94 mmol/L (98-107); CREATINE KINASE 247 U/L (55-170); GLUCOSE 110 mg/dL (75-110); POTASSIUM 3.6 mmol/L (3.6-5.0); SODIUM 131.7 mmol/L (137-145); TOTAL PROTEIN 7.2 g/dL (6.3-8.2)
[2018-05-26 07:42] LABS: ABSOLUTE EOSINOPHILS # (AUTO) 0.2 10^3/uL (0.0-0.6); ABSOLUTE MONOCYTES (AUTO) 0.6 10^3/uL (0.1-1.4); ABSOLUTE NEUT (AUTO) 2.7 10^3/uL (1.7-8.2); EOSINOPHILS % (AUTO) 5.2 % (0-6); HEMATOCRIT 27.8 % (37.9-51.0); LYMPHOCYTES % (AUTO) 21.8 % (13-45); MEAN CORPUSCULAR HEMOGLOBIN 30.9 pg (27.0-33.4); MEAN CORPUSCULAR HGB CONC 36.1 g/dL (32.0-36.0); MEAN CORPUSCULAR VOLUME 85 fl (80-97); PLATELET COUNT 187 10^3/uL (150-450); RED BLOOD COUNT 3.25 10^6/uL (4.35-5.55); RED CELL DISTRIBUTION WIDTH 13.5 % (11.5-14.0); TOTAL CELLS COUNTED % (AUTO) 100 %; WHITE BLOOD COUNT 4.6 10^3/uL (4.0-10.5)
[2018-05-26] MEDS: FUROSEMIDE 20 MG TABLET PO SCH (08:46)
[2018-05-26] MEDS: FOLIC ACID 1 MG TABLET PO SCH (09:15)
[2018-05-26] MEDS: METOPROLOL SUCCINATE 50 MG TAB.SR.24H PO SCH (09:15)
[2018-05-26] MEDS: AMLODIPINE BESYLATE 5 MG TABLET PO SCH (09:15)
[2018-05-26] MEDS: APIXABAN 5 MG TABLET PO SCH ×2 (09:16→19:16)
[2018-05-26] MEDS: NORMAL SALINE 1000 ML 1,000 ML IV PRN (09:16)
[2018-05-26] MEDS: LEVOFLOXACIN 500 MG/D5W RTU 500 MG/100 ML RTUPB IV SCH (09:17)
[2018-05-26] MEDS: LEVETIRACETAM ORAL SOLN 500 MG/5 ML UDCUP PO SCH ×2 (09:18→21:36)
[2018-05-26] MEDS: ACETAMINOPHEN 325 MG TABLET PO PRN (12:36)
--- NOTE | 2018-05-26 16:52 | PDOC PROGRESS REPORT ---
Subjective Progress Note for:: 05/26/18 Subjective:: He has no new complaints and no fever today. His BP was 85/56 after he took his BP meds today; we will hold BP meds if SBP<100 or DBP <60. Discussed with nurse to follow with transit planner for SNF placement. Discussed with pt's daughter in-law yesterday at length about his plan of care and that we will will likely send him to SNF. She is in agreement, though she pointed out that the pt's POA is his daughter in [place] and she will discuss all these with her this weekend when she travels to [place] for family reunion. Reason For Visit: CHEST PAIN,WEAKNESS,ABNORMAL TROPONIN Physical Exam Vital Signs: Temp Pulse Resp BP Pulse Ox 99.3 F 78 18 84/55 L 100 05/26/18 11:45 05/26/18 11:45 05/26/18 11:45 05/26/18 11:45 05/26/18 11:45 Intake & Output 05/25/18 05/26/18 05/27/18 06:59 06:59 06:59 Intake Total 1082 3798 350 Balance 1082 3798 350 Weight 70.8 kg 74.6 kg General appearance: PRESENT: no acute distress, cooperative, well-developed, well-nourished Head exam: PRESENT: atraumatic, normocephalic Eye exam: PRESENT: EOMI, PERRLA Ear exam: PRESENT: normal external ear exam, TM's normal bilaterally Mouth exam: PRESENT: neck supple, tongue midline Respiratory exam: PRESENT: clear to auscultation ekta, symmetrical Cardiovascular exam: PRESENT: irregular rhythm, +S1, +S2 Pulses: PRESENT: +1 pedal pulses bilateral GI/Abdominal exam: PRESENT: normal bowel sounds, soft Rectal exam: PRESENT: deferred Neurological exam: PRESENT: alert, awake, oriented to person, oriented to place , oriented to time Psychiatric exam: PRESENT: normal mood Results Laboratory Results: 05/26/18 07:17 05/26/18 05:20 05/26/18 05/26/18 05/26/18 05:20 05:20 07:17 WBC Cancelled 4.6 RBC Cancelled 3.25 L Hgb Cancelled 10.0 L Hct Cancelled 27.8 L MCV Cancelled 85 MCH Cancelled 30.9 MCHC Cancelled 36.1 H RDW Cancelled 13.5 Plt Count Cancelled 187 Seg Neutrophils % Cancelled 59.0 Lymphocytes % Cancelled 21.8 Monocytes % Cancelled 13.0 Eosinophils % Cancelled 5.2 Basophils % Cancelled 1.0 Absolute Neutrophils Cancelled 2.7 Absolute Lymphocytes Cancelled 1.0 Absolute Monocytes Cancelled 0.6 Absolute Eosinophils Cancelled 0.2 Absolute Basophils Cancelled 0.0 Sodium 131.7 L Potassium 3.6 Chloride 94 L Carbon Dioxide 27 Anion Gap 11 BUN 9 Creatinine 0.51 L Est GFR ( Amer) > 60 Est GFR (Non-Af Amer) > 60 Glucose 110 Calcium 8.4 Total Bilirubin 0.8 AST 46 ALT 28 Alkaline Phosphatase 86 Total Protein 7.2 Albumin 3.4 L 05/23/18 16:50 Catheterized Urine Urine Culture - Final Staphylococcus Aureus 05/24/18 05/24/18 05/25/18 06:45 06:45 05:40 Creatine Kinase 733 H 396 H CK-MB (CK-2) 1.65 Troponin I 0.071 05/25/18 05/26/18 05:40 05:20 Creatine Kinase 247 H CK-MB (CK-2) 1.11 Troponin I 0.046 Impressions: Head CT 05/21/18 09:09 IMPRESSION: Chronic changes. 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 Small vessel disease. No acute abnormality. EVIDENCE OF ACUTE STROKE: NO. Chest X-Ray 05/23/18 00:00 IMPRESSION: Cardiomegaly without failure. There appear to be small pleural effusions on the lateral view. Assessment & Plan - Diagnosis (1) Rhabdomyolysis Qualifiers: Encounter type: initial encounter Is this a current diagnosis for this admission?: Yes Plan: Ct with IV fluid normal saline at 75cc/hr cautiously because of hx of CHF. Monitor CK, CMP daily. (2) Urinary tract infection Qualifiers: Urinary tract infection type: site unspecified Is this a current diagnosis for this admission?: Yes Plan: Ct with Levaquin 500mg daily IV;Add Vancomycin IV as per [facility] protocol. Tylenol 650 mg q4h prn po.F/u blood culture report. (3) Fever Qualifiers: Fever type: unspecified Qualified Code(s): R50.9 - Fever, unspecified Is this a current diagnosis for this admission?: Yes (4) Seizure disorder Is this a current diagnosis for this admission?: Yes Plan: Ct with Keppra 1000 mg q12h po. Seizure and falls precautions. F/u neurology consult. (5) Chest pain Is this a current diagnosis for this admission?: Yes (6) Chest pain Qualifiers: Chest pain type: other chest pain Qualified Code(s): R07.89 - Other chest pain; R07.8 - Other chest pain Is this a current diagnosis for this admission?: Yes Plan: Ct with serial cardiac enzymes monitoring and is trending downwards. Cardiolyte stress test is negative and cardiology has signed off. (8) Congestive heart failure with left ventricular diastolic dysfunction Qualifiers: Congestive heart failure chronicity: chronic Qualified Code(s): I50.32 - Chronic diastolic (congestive) heart failure Is this a current diagnosis for this admission?: Yes Plan: Ct with Lasix 20 mg qd po; Metoprolol succinate 50 mg qd po. Monitor chemistries daily; strict input/output chart. (9) Hyponatremia Is this a current diagnosis for this admission?: Yes Plan: Ct with IV fluids normal saline at 75 cc/hr cautiously due to hx of CHF. Ct with fluid restrictions. monitor his chemistries daily. (10) Hypertension Qualifiers: Hypertension type: unspecified Qualified Code(s): I10 - Essential (primary ) hypertension Is this a current diagnosis for this admission?: Yes Plan: Ct with Metoprolol succinate 50mg qd po; Amlodipine 5 mg qd po; Hold BP meds if SBP< 100 or DBP <60;2 g sodium diet. (11) Hyperlipidemia Qualifiers: Hyperlipidemia type: mixed hyperlipidemia Qualified Code(s): E78.2 - Mixed hyperlipidemia Is this a current diagnosis for this admission?: Yes Plan: Hold Atorvastatin 80 mg qhs due to rhabdomyolysis; ct with 200mg cholesterol diet. (12) Atrial fibrillation Qualifiers: Atrial fibrillation type: paroxysmal Qualified Code(s): I48.0 - Paroxysmal atrial fibrillation Is this a current diagnosis for this admission?: Yes Plan: Ct with Metoprolol succinate 50 mg qd po,hold if SBP<100 or DBP <60; Eliquis 5 mg po BID. (13) BPH (benign prostatic hyperplasia) Qualifiers: Lower urinary tract symptom detail: unspecified Is this a current diagnosis for this admission?: Yes Plan: Ct with Proscar 5mg qhs po; Doxazosin 8 mg qhs po. (14) Overactive bladder Is this a current diagnosis for this admission?: Yes Plan: Ct with Oxybutynin 5 mg q12h po. (15) DVT prophylaxis Is this a current diagnosis for this admission?: Yes Plan: Ct with Eliquis 5 mg BID po; SCD.
[2018-05-26 19:22] LABS: VANCOMYCIN,TROUGH 8.8 ug/mL (5.0-20.0)
[2018-05-26] MEDS: VANCOMYCIN HCL 1,000 MG in DEXTROSE 5%-WATER 250 ML IV SCH (21:31)
[2018-05-26] MEDS: FINASTERIDE 5 MG TABLET PO SCH (21:36)
[2018-05-26] MEDS: DOXAZOSIN MESYLATE 4 MG TABLET PO SCH (21:36)
[2018-05-27] MEDS: VANCOMYCIN HCL 1,000 MG in DEXTROSE 5%-WATER 250 ML IV SCH ×2 (05:37→16:12)
[2018-05-27] MEDS: LANSOPRAZOLE 30 MG TAB.RAP.DR PO SCH (05:37)
[2018-05-27] MEDS: OXYBUTYNIN CHLORIDE 5 MG TABLET PO SCH ×2 (05:37→17:41)
[2018-05-27 07:01] LABS: ABSOLUTE EOSINOPHILS # (AUTO) 0.3 10^3/uL (0.0-0.6); ABSOLUTE MONOCYTES (AUTO) 0.5 10^3/uL (0.1-1.4); ABSOLUTE NEUT (AUTO) 2.6 10^3/uL (1.7-8.2); BASOPHILS % (AUTO) 0.9 % (0-2); EOSINOPHILS % (AUTO) 6.3 % (0-6); HEMATOCRIT 31.3 % (37.9-51.0); HEMOGLOBIN 11.1 g/dL (13.5-17.0); LYMPHOCYTES % (AUTO) 22.2 % (13-45); MEAN CORPUSCULAR HEMOGLOBIN 30.5 pg (27.0-33.4); MEAN CORPUSCULAR HGB CONC 35.6 g/dL (32.0-36.0); MEAN CORPUSCULAR VOLUME 86 fl (80-97); MONOCYTES % (AUTO) 11.1 % (3-13); PLATELET COUNT 219 10^3/uL (150-450); RED BLOOD COUNT 3.66 10^6/uL (4.35-5.55); RED CELL DISTRIBUTION WIDTH 13.3 % (11.5-14.0); SEGMENTED NEUTROPHILS % (AUTO) 59.5 % (42-78); TOTAL CELLS COUNTED % (AUTO) 100 %; WHITE BLOOD COUNT 4.4 10^3/uL (4.0-10.5)
[2018-05-27 07:17] LABS: ALANINE AMINOTRANSFERASE 25 U/L (21-72); ALBUMIN 3.5 g/dL (3.5-5.0); ALKALINE PHOSPHATASE 89 U/L (38-126); ANION GAP 9 (5-19); ASPARTATE AMINO TRANSFERASE 43 U/L (17-59); BILIRUBIN,DIRECT 0.2 mg/dL (0.0-0.4); BILIRUBIN,TOTAL 0.8 mg/dL (0.2-1.3); BLOOD UREA NITROGEN 8 mg/dL (7-20); CALCIUM 8.4 mg/dL (8.4-10.2); CARBON DIOXIDE 28 mmol/L (22-30); CHLORIDE 94 mmol/L (98-107); CREATINE KINASE 151 U/L (55-170); GLUCOSE 121 mg/dL (75-110); POTASSIUM 3.3 mmol/L (3.6-5.0); SODIUM 130.5 mmol/L (137-145); TOTAL PROTEIN 7.2 g/dL (6.3-8.2)
[2018-05-27] MEDS: FUROSEMIDE 20 MG TABLET PO SCH (09:08)
--- NOTE | 2018-05-27 09:22 | Progress Note ---
Provider Note Provider Note: ID Consult Note Asked to review patient's chart by Pharmacy. Pt not seen or examined. Mr Landa is a 77 year old man with PMH including HTN, seizure d/o on Keppra at home, CHF s/p AICD placement in February 2018, chronic anticoagulation with Eliquis. He was admitted on 05/21/18 with seizure-like activity and information from his family that he may have been inadvertently home medication incorrectly. He had no c/o fever or chills at home. WBC wnl, plts wnl on CBC. CPK on presentation approximately 2900, AST initially 100 with wnl ALT - since trended down. Exam reported as benign/unremarkable, without localizing findings such as abdominal tenderness or suprapubic pain. He reported no dysuria. He developed fever to 100.4 on 05/22, which continued on 05/23, 05/24, and 05/25 to 101-101.8 F. CXR 2 view on 05/23 showed cardiomegaly but no infiltrate. He had blood cultures drawn on 05/23 that showed no growth x 3 days at this point. U/A showed pyuria, and UCx showed growth of >100k cfu MSSA. Levaquin was started on 05/23 and continued to present, and vancomycin was added. Impression/Recommendations complicated UTI with MSSA - This is difficult to piece together based on chart review. Patient has no dysuria but fever without other source and what was reported as catheterized urine specimen with MSSA, otherwise no localizing signs/sx to suggest an infectious etiology and negative workup (BCx, CXR). Staph aureus is not a common cause of a UTI and often is worrisome for bacteremic seeding of the urine , but blood cultures are negative, and Staph aureus can cause UTI in setting of indwelling catheter. Urine was collected with catheterized specimen, but I do not know how to find in [employer] whether this was I&O cath or indwelling catheter. - Urinary catheter should be exchanged or removed if not needed, if not already done. If no other symptoms or signs to suggest a more deep seated focus (e.g. perineal pain or boggy tender prostate on rectal exam to indicate something like prostatitis), the duration of therapy for a complicated UTI or catheter associated UTI should be 7-10 days in duration. Recommend completion of 10 days of therapy with Bactrim PO 1 DS BID, to which the organism is sensitive and the patient has no drug interactions or allergies. Recommend discontinuing IV vancomycin and Levaquin and treating with Bactrim instead. Sukh Garcia MD [facility] pager [phone]
[2018-05-27] MEDS: FOLIC ACID 1 MG TABLET PO SCH (10:50)
[2018-05-27] MEDS: AMLODIPINE BESYLATE 5 MG TABLET PO SCH (10:51)
[2018-05-27] MEDS: LEVOFLOXACIN 500 MG/D5W RTU 500 MG/100 ML RTUPB IV SCH (10:51)
[2018-05-27] MEDS: METOPROLOL SUCCINATE 50 MG TAB.SR.24H PO SCH (10:51)
[2018-05-27] MEDS: APIXABAN 5 MG TABLET PO SCH ×2 (10:52→17:41)
[2018-05-27] MEDS: LEVETIRACETAM ORAL SOLN 500 MG/5 ML UDCUP PO SCH ×2 (10:52→22:23)
[2018-05-27] MEDS ORDERED: POTASSI CL 20 MEQ/50 ML RIDER 20 MEQ/50 ML RTUPB IV ONE (14:45)
--- NOTE | 2018-05-27 14:45 | PDOC PROGRESS REPORT ---
Subjective Progress Note for:: 05/27/18 Subjective:: Pt is better today and participated with PT. and more awake and alert. His potassium decreased to 3.3, so we will give him KCL 20 MEQ IVx1. He had ID review by Dr Yvette Garcia from [facility] and he recommended to discontinue Vancomycin and Levaquin, though pt is no longer having fever since Vancomycin was added.He recommended Bactrim instead. Discharge is working on SNF placement as recommended by physical therapy. Hospitalists will take over his care for the weekend. Reason For Visit: CHEST PAIN,WEAKNESS,ABNORMAL TROPONIN Physical Exam Vital Signs: Temp Pulse Resp BP Pulse Ox 98.8 F 64 12 115/69 100 05/27/18 07:14 05/27/18 07:14 05/27/18 07:14 05/27/18 07:14 05/27/18 07:14 Intake & Output 05/26/18 05/27/18 05/28/18 06:59 06:59 06:59 Intake Total 3798 1999 Balance 3798 1999 Weight 74.6 kg 71.6 kg General appearance: PRESENT: no acute distress, cooperative, well-developed, well-nourished Head exam: PRESENT: atraumatic, normocephalic Eye exam: PRESENT: EOMI, PERRLA Ear exam: PRESENT: TM's normal bilaterally Mouth exam: PRESENT: neck supple, tongue midline Neck exam: PRESENT: full ROM Respiratory exam: PRESENT: clear to auscultation ekta, symmetrical Cardiovascular exam: PRESENT: irregular rhythm, +S1, +S2 Pulses: PRESENT: +2 pedal pulses bilateral GI/Abdominal exam: PRESENT: normal bowel sounds, soft Rectal exam: PRESENT: deferred Neurological exam: PRESENT: alert, awake, oriented to person, oriented to place , oriented to time Psychiatric exam: PRESENT: normal mood Results Laboratory Results: 05/27/18 06:46 05/27/18 06:46 05/27/18 05/27/18 06:46 06:46 WBC 4.4 RBC 3.66 L Hgb 11.1 L Hct 31.3 L MCV 86 MCH 30.5 MCHC 35.6 RDW 13.3 Plt Count 219 Seg Neutrophils % 59.5 Lymphocytes % 22.2 Monocytes % 11.1 Eosinophils % 6.3 H Basophils % 0.9 Absolute Neutrophils 2.6 Absolute Lymphocytes 1.0 Absolute Monocytes 0.5 Absolute Eosinophils 0.3 Absolute Basophils 0.0 Sodium 130.5 L Potassium 3.3 L Chloride 94 L Carbon Dioxide 28 Anion Gap 9 BUN 8 Creatinine 0.47 L Est GFR ( Amer) > 60 Est GFR (Non-Af Amer) > 60 Glucose 121 H Calcium 8.4 Total Bilirubin 0.8 AST 43 ALT 25 Alkaline Phosphatase 89 Total Protein 7.2 Albumin 3.5 05/24/18 05/24/18 05/25/18 06:45 06:45 05:40 Creatine Kinase 733 H 396 H CK-MB (CK-2) 1.65 Troponin I 0.071 05/25/18 05/26/18 05/27/18 05:40 05:20 06:46 Creatine Kinase 247 H 151 CK-MB (CK-2) 1.11 Troponin I 0.046 Impressions: Head CT 05/21/18 09:09 IMPRESSION: Chronic changes. 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 Small vessel disease. No acute abnormality. EVIDENCE OF ACUTE STROKE: NO. Chest X-Ray 05/23/18 00:00 IMPRESSION: Cardiomegaly without failure. There appear to be small pleural effusions on the lateral view. Assessment & Plan - Diagnosis (1) Rhabdomyolysis Qualifiers: Encounter type: initial encounter Is this a current diagnosis for this admission?: Yes Plan: Ct with IV fluid normal saline at 75cc/hr cautiously because of hx of CHF. Monitor CK, CMP daily. (2) Urinary tract infection Qualifiers: Urinary tract infection type: site unspecified Is this a current diagnosis for this admission?: Yes Plan: Switch him to Bactrim DS 1 BID Po for 7-10 days as per ID recommendation. Tylenol 650 mg q4h prn po.F/u blood culture report. (3) Fever Qualifiers: Fever type: unspecified Qualified Code(s): R50.9 - Fever, unspecified Is this a current diagnosis for this admission?: Yes (4) Seizure disorder Is this a current diagnosis for this admission?: Yes Plan: Ct with Keppra 1000 mg q12h po. Seizure and falls precautions. F/u neurology consult. (5) Chest pain Is this a current diagnosis for this admission?: Yes (6) Chest pain Qualifiers: Chest pain type: other chest pain Qualified Code(s): R07.89 - Other chest pain; R07.8 - Other chest pain Is this a current diagnosis for this admission?: Yes Plan: Ct with serial cardiac enzymes monitoring and is trending downwards. Cardiolyte stress test is negative and cardiology has signed off. (8) Congestive heart failure with left ventricular diastolic dysfunction Qualifiers: Congestive heart failure chronicity: chronic Qualified Code(s): I50.32 - Chronic diastolic (congestive) heart failure Is this a current diagnosis for this admission?: Yes Plan: Ct with Lasix 20 mg qd po; Metoprolol succinate 50 mg qd po. Monitor chemistries daily; strict input/output chart. (9) Hypokalemia Is this a current diagnosis for this admission?: Yes Plan: Pt was given KCL 20 MEQ IVx1; we will add KCL 10 MEQ qd po; monitor chemistries daily. (10) Hyponatremia Is this a current diagnosis for this admission?: Yes Plan: Ct with IV fluids normal saline at 75 cc/hr cautiously due to hx of CHF. Ct with fluid restrictions. monitor his chemistries daily. (11) Hypertension Qualifiers: Hypertension type: unspecified Qualified Code(s): I10 - Essential (primary ) hypertension Is this a current diagnosis for this admission?: Yes Plan: Ct with Metoprolol succinate 50mg qd po; Amlodipine 5 mg qd po; Hold BP meds if SBP< 100 or DBP <60;2 g sodium diet. (12) Hyperlipidemia Qualifiers: Hyperlipidemia type: mixed hyperlipidemia Qualified Code(s): E78.2 - Mixed hyperlipidemia Is this a current diagnosis for this admission?: Yes Plan: Hold Atorvastatin 80 mg qhs due to rhabdomyolysis; ct with 200mg cholesterol diet. (13) Atrial fibrillation Qualifiers: Atrial fibrillation type: paroxysmal Qualified Code(s): I48.0 - Paroxysmal atrial fibrillation Is this a current diagnosis for this admission?: Yes Plan: Ct with Metoprolol succinate 50 mg qd po,hold if SBP<100 or DBP <60; Eliquis 5 mg po BID. (14) BPH (benign prostatic hyperplasia) Qualifiers: Lower urinary tract symptom detail: unspecified Is this a current diagnosis for this admission?: Yes Plan: Ct with Proscar 5mg qhs po; Doxazosin 8 mg qhs po. (15) Overactive bladder Is this a current diagnosis for this admission?: Yes Plan: Ct with Oxybutynin 5 mg q12h po. (16) DVT prophylaxis Is this a current diagnosis for this admission?: Yes Plan: Ct with Eliquis 5 mg BID po; SCD.
[2018-05-27] MEDS: POTASSIUM CHLORIDE 10 MEQ CAPSULE.ER PO SCH (15:20)
[2018-05-27] MEDS: SULFAMETHOXAZOLE/TRIMETHOPRIM 800-160 MG TABLET PO SCH (17:41)
[2018-05-27] MEDS: FINASTERIDE 5 MG TABLET PO SCH (22:23)
[2018-05-27] MEDS: DOXAZOSIN MESYLATE 4 MG TABLET PO SCH (22:23)
[2018-05-27] MEDS: NORMAL SALINE 1000 ML 1,000 ML IV PRN (22:24)
[2018-05-28] MEDS: OXYBUTYNIN CHLORIDE 5 MG TABLET PO SCH ×2 (06:06→17:10)
[2018-05-28] MEDS: LANSOPRAZOLE 30 MG TAB.RAP.DR PO SCH (06:06)
[2018-05-28 06:16] LABS: ALANINE AMINOTRANSFERASE 29 U/L (21-72); ALKALINE PHOSPHATASE 82 U/L (38-126); ANION GAP 7 (5-19); ASPARTATE AMINO TRANSFERASE 41 U/L (17-59); BILIRUBIN,DIRECT 0.3 mg/dL (0.0-0.4); BILIRUBIN,TOTAL 0.6 mg/dL (0.2-1.3); BLOOD UREA NITROGEN 7 mg/dL (7-20); CALCIUM 8.4 mg/dL (8.4-10.2); CARBON DIOXIDE 28 mmol/L (22-30); CHLORIDE 96 mmol/L (98-107); CREATINE KINASE 129 U/L (55-170); GLUCOSE 97 mg/dL (75-110); POTASSIUM 3.7 mmol/L (3.6-5.0); SODIUM 131.4 mmol/L (137-145); TOTAL PROTEIN 6.5 g/dL (6.3-8.2)
[2018-05-28 06:17] LABS: ABSOLUTE BASOPHILS # (AUTO) 0.1 10^3/uL (0.0-0.2); ABSOLUTE EOSINOPHILS # (AUTO) 0.2 10^3/uL (0.0-0.6); ABSOLUTE MONOCYTES (AUTO) 0.5 10^3/uL (0.1-1.4); ABSOLUTE NEUT (AUTO) 3.8 10^3/uL (1.7-8.2); BASOPHILS % (AUTO) 0.9 % (0-2); EOSINOPHILS % (AUTO) 4.3 % (0-6); HEMATOCRIT 28.2 % (37.9-51.0); HEMOGLOBIN 9.9 g/dL (13.5-17.0); LYMPHOCYTES % (AUTO) 18.1 % (13-45); MEAN CORPUSCULAR HGB CONC 35.2 g/dL (32.0-36.0); MEAN CORPUSCULAR VOLUME 85 fl (80-97); MONOCYTES % (AUTO) 8.5 % (3-13); PLATELET COUNT 215 10^3/uL (150-450); RED BLOOD COUNT 3.31 10^6/uL (4.35-5.55); RED CELL DISTRIBUTION WIDTH 13.1 % (11.5-14.0); SEGMENTED NEUTROPHILS % (AUTO) 68.2 % (42-78); TOTAL CELLS COUNTED % (AUTO) 100 %; WHITE BLOOD COUNT 5.6 10^3/uL (4.0-10.5)
[2018-05-28 06:26] LABS: VANCOMYCIN,TROUGH < 5.0 ug/mL (5.0-20.0)
[2018-05-28] MEDS: FUROSEMIDE 20 MG TABLET PO SCH (08:13)
[2018-05-28] MEDS: AMLODIPINE BESYLATE 5 MG TABLET PO SCH (10:00)
[2018-05-28] MEDS: POTASSIUM CHLORIDE 10 MEQ CAPSULE.ER PO SCH (10:00)
[2018-05-28] MEDS: APIXABAN 5 MG TABLET PO SCH ×2 (10:00→17:10)
[2018-05-28] MEDS: LEVETIRACETAM ORAL SOLN 500 MG/5 ML UDCUP PO SCH ×2 (10:01→21:48)
[2018-05-28] MEDS: FOLIC ACID 1 MG TABLET PO SCH (10:01)
[2018-05-28] MEDS: METOPROLOL SUCCINATE 50 MG TAB.SR.24H PO SCH (10:01)
[2018-05-28] MEDS: SULFAMETHOXAZOLE/TRIMETHOPRIM 800-160 MG TABLET PO SCH ×2 (10:01→17:10)
[2018-05-28] MEDS: ACETAMINOPHEN 325 MG TABLET PO PRN (12:56)
[2018-05-28] MEDS: NORMAL SALINE 1000 ML 1,000 ML IV PRN (13:28)
--- NOTE | 2018-05-28 15:09 | PDOC PROGRESS REPORT ---
Subjective Progress Note for:: 05/28/18 Subjective:: Mr. Landa has was admitted for chest pain and questionable seizure like episode. No acute event overnight. Patient had a normal stress test. He denies any chest pain or shortness of breath. No recurrence of seizure-like activity. No fever or chills. Patient is just waiting for placement. Reason For Visit: CHEST PAIN,WEAKNESS,ABNORMAL TROPONIN Physical Exam Vital Signs: Temp Pulse Resp BP Pulse Ox 98.5 F 58 L 18 130/76 H 100 05/28/18 10:55 05/28/18 14:00 05/28/18 10:55 05/28/18 10:55 05/28/18 10:55 Intake & Output 05/27/18 05/28/18 05/29/18 06:59 06:59 06:59 Intake Total 1999 612 1000 Balance 1999 612 1000 Weight 157 lb 13.616 oz 155 lb 6.814 oz General appearance: PRESENT: no acute distress, well-developed, well-nourished Head exam: PRESENT: atraumatic, normocephalic Eye exam: PRESENT: conjunctiva pink, EOMI, PERRLA. ABSENT: scleral icterus Neck exam: ABSENT: carotid bruit, JVD, lymphadenopathy, thyromegaly Respiratory exam: PRESENT: clear to auscultation ekta. ABSENT: rales, rhonchi, wheezes Cardiovascular exam: PRESENT: RRR. ABSENT: diastolic murmur, rubs, systolic murmur Vascular exam: PRESENT: normal capillary refill GI/Abdominal exam: PRESENT: normal bowel sounds, soft. ABSENT: distended, guarding, mass, organolmegaly, rebound, tenderness Neurological exam: PRESENT: alert, oriented to person, oriented to place, oriented to time Results Laboratory Results: 05/28/18 05:49 05/28/18 05:49 05/28/18 05/28/18 05:49 05:49 WBC 5.6 RBC 3.31 L Hgb 9.9 L Hct 28.2 L MCV 85 MCH 30.0 MCHC 35.2 RDW 13.1 Plt Count 215 Seg Neutrophils % 68.2 Lymphocytes % 18.1 Monocytes % 8.5 Eosinophils % 4.3 Basophils % 0.9 Absolute Neutrophils 3.8 Absolute Lymphocytes 1.0 Absolute Monocytes 0.5 Absolute Eosinophils 0.2 Absolute Basophils 0.1 Sodium 131.4 L Potassium 3.7 Chloride 96 L Carbon Dioxide 28 Anion Gap 7 BUN 7 Creatinine 0.48 L Est GFR ( Amer) > 60 Est GFR (Non-Af Amer) > 60 Glucose 97 Calcium 8.4 Total Bilirubin 0.6 AST 41 ALT 29 Alkaline Phosphatase 82 Total Protein 6.5 Albumin 3.0 L 05/24/18 05/24/18 05/25/18 06:45 06:45 05:40 Creatine Kinase 733 H 396 H CK-MB (CK-2) 1.65 Troponin I 0.071 05/25/18 05/26/18 05/27/18 05:40 05:20 06:46 Creatine Kinase 247 H 151 CK-MB (CK-2) 1.11 Troponin I 0.046 05/28/18 05:49 Creatine Kinase 129 CK-MB (CK-2) Troponin I Impressions: Head CT 05/21/18 09:09 IMPRESSION: Chronic changes. 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 Small vessel disease. No acute abnormality. EVIDENCE OF ACUTE STROKE: NO. Chest X-Ray 05/23/18 00:00 IMPRESSION: Cardiomegaly without failure. There appear to be small pleural effusions on the lateral view. Assessment & Plan - Diagnosis (1) Chest pain Qualifiers: Chest pain type: other chest pain Qualified Code(s): R07.89 - Other chest pain; R07.8 - Other chest pain Is this a current diagnosis for this admission?: Yes Plan: Chest pain resolved. Acute coronary syndrome ruled out. Stress test was negative. Troponin elevation is likely secondary to demand ischemia. (2) Seizure disorder Is this a current diagnosis for this admission?: Yes Plan: No recurrence of seizure-like activity. Continue Keppra. (3) Congestive heart failure, diastolic, left, w/preserved LV function, NYHA class 4 Is this a current diagnosis for this admission?: Yes Plan: Stable. No clinical evidence of acute CHF exacerbation or volume overload. (4) Rhabdomyolysis Qualifiers: Encounter type: initial encounter Is this a current diagnosis for this admission?: Yes Plan: Resolved. (5) Urinary tract infection Qualifiers: Urinary tract infection type: site unspecified Is this a current diagnosis for this admission?: Yes Plan: Noted ID recommendations. Urine culture grew MSSA which is unlikely to be a cause of a true urinary tract infection. Continue Bactrim. (6) Atrial fibrillation Qualifiers: Atrial fibrillation type: paroxysmal Qualified Code(s): I48.0 - Paroxysmal atrial fibrillation Is this a current diagnosis for this admission?: Yes Plan: Controlled. Continue Eliquis and Lopressor. (7) Hypokalemia Is this a current diagnosis for this admission?: Yes Plan: Result. - Time Time Spent with patient: 15-24 minutes
[2018-05-28] MEDS: FINASTERIDE 5 MG TABLET PO SCH (21:48)
[2018-05-28] MEDS: DOXAZOSIN MESYLATE 4 MG TABLET PO SCH (21:48)
[2018-05-29] MEDS: ACETAMINOPHEN 325 MG TABLET PO PRN (03:40)
[2018-05-29] MEDS: NORMAL SALINE 1000 ML 1,000 ML IV PRN ×2 (03:40→15:46)
[2018-05-29] MEDS: OXYBUTYNIN CHLORIDE 5 MG TABLET PO SCH ×2 (05:33→17:53)
[2018-05-29] MEDS: LANSOPRAZOLE 30 MG TAB.RAP.DR PO SCH (05:34)
[2018-05-29] MEDS: FUROSEMIDE 20 MG TABLET PO SCH (08:27)
[2018-05-29] MEDS: POTASSIUM CHLORIDE 10 MEQ CAPSULE.ER PO SCH (09:58)
[2018-05-29] MEDS: LEVETIRACETAM ORAL SOLN 500 MG/5 ML UDCUP PO SCH ×2 (09:58→21:30)
[2018-05-29] MEDS: AMLODIPINE BESYLATE 5 MG TABLET PO SCH (09:59)
[2018-05-29] MEDS: APIXABAN 5 MG TABLET PO SCH ×2 (09:59→17:53)
[2018-05-29] MEDS: SULFAMETHOXAZOLE/TRIMETHOPRIM 800-160 MG TABLET PO SCH ×2 (09:59→17:53)
[2018-05-29] MEDS: FOLIC ACID 1 MG TABLET PO SCH (09:59)
[2018-05-29] MEDS: METOPROLOL SUCCINATE 50 MG TAB.SR.24H PO SCH (09:59)
--- NOTE | 2018-05-29 15:59 | PDOC PROGRESS REPORT ---
Subjective Progress Note for:: 05/29/18 Subjective:: Mr. Landa has was admitted for generalized weakness, chest pain and questionable seizure like episode. No acute event overnight. Patient had a normal stress test. He denies any chest pain or shortness of breath. No recurrence of seizure-like activity. No fever or chills. Patient is just waiting for placement. Patient still feels weak and needs assistance. Apparently, placement process was not initiated as son, Chris, did not consent yesterday. Discussed with son and whole [place] regarding patient's status and goals of care. Questions from family were answered. They are now agreeable to transferring patient to rehab. Reason For Visit: CHEST PAIN,WEAKNESS,ABNORMAL TROPONIN Physical Exam Vital Signs: Temp Pulse Resp BP Pulse Ox 98.9 F 67 16 115/63 94 05/29/18 15:33 05/29/18 15:33 05/29/18 15:33 05/29/18 15:33 05/29/18 15:33 Intake & Output 05/28/18 05/29/18 05/30/18 06:59 06:59 06:59 Intake Total 612 2233 960 Balance 612 2233 960 Weight 155 lb 6.814 oz 158 lb 8.198 oz General appearance: PRESENT: no acute distress, well-developed, well-nourished Neck exam: ABSENT: carotid bruit, JVD, lymphadenopathy, thyromegaly Respiratory exam: PRESENT: clear to auscultation ekta. ABSENT: rales, rhonchi, wheezes Cardiovascular exam: PRESENT: RRR Pulses: PRESENT: normal dorsalis pedis pul GI/Abdominal exam: PRESENT: normal bowel sounds, soft. ABSENT: distended, guarding, mass, organolmegaly, rebound, tenderness Extremities exam: PRESENT: full ROM. ABSENT: calf tenderness, clubbing, pedal edema Neurological exam: PRESENT: alert, oriented to person, oriented to place, oriented to time Psychiatric exam: PRESENT: flat affect Skin exam: PRESENT: dry, intact, warm. ABSENT: cyanosis, rash Results Laboratory Results: 05/28/18 05:49 05/28/18 05:49 05/23/18 17:10 Blood Blood Culture - Final NO GROWTH IN 5 DAYS 05/23/18 16:30 Blood Blood Culture - Final NO GROWTH IN 5 DAYS 05/24/18 05/24/18 05/25/18 06:45 06:45 05:40 Creatine Kinase 733 H 396 H CK-MB (CK-2) 1.65 Troponin I 0.071 05/25/18 05/26/18 05/27/18 05:40 05:20 06:46 Creatine Kinase 247 H 151 CK-MB (CK-2) 1.11 Troponin I 0.046 05/28/18 05:49 Creatine Kinase 129 CK-MB (CK-2) Troponin I Impressions: Head CT 05/21/18 09:09 IMPRESSION: Chronic changes. 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 Small vessel disease. No acute abnormality. EVIDENCE OF ACUTE STROKE: NO. Chest X-Ray 05/23/18 00:00 IMPRESSION: Cardiomegaly without failure. There appear to be small pleural effusions on the lateral view. Assessment & Plan - Diagnosis (1) Chest pain Qualifiers: Chest pain type: other chest pain Qualified Code(s): R07.89 - Other chest pain; R07.8 - Other chest pain Is this a current diagnosis for this admission?: Yes Plan: Chest pain resolved. Acute coronary syndrome ruled out. Stress test was negative. Troponin elevation is likely secondary to demand ischemia. (2) Seizure disorder Is this a current diagnosis for this admission?: Yes Plan: No recurrence of seizure-like activity. Continue Keppra 1000 mg bid. (3) Congestive heart failure, diastolic, left, w/preserved LV function, NYHA class 4 Is this a current diagnosis for this admission?: Yes Plan: Stable. No clinical evidence of acute CHF exacerbation or volume overload. (4) Rhabdomyolysis Qualifiers: Encounter type: initial encounter Is this a current diagnosis for this admission?: Yes Plan: Per patient's son, he may have taken a few statin pills mistakenly. His CK on presentation was in the 1999s. 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 Discontinue statin for now. Family asked if he could be switched to a different statin. Explained that I recommend holding off on any statins for now. (5) Urinary tract infection Qualifiers: Urinary tract infection type: site unspecified Is this a current diagnosis for this admission?: Yes Plan: Noted ID recommendations. Urine culture grew MSSA which is unlikely to be a cause of a true urinary tract infection. On Bactrim. (6) Atrial fibrillation Qualifiers: Atrial fibrillation type: paroxysmal Qualified Code(s): I48.0 - Paroxysmal atrial fibrillation Is this a current diagnosis for this admission?: Yes Plan: Controlled. Continue Eliquis and Lopressor. (7) Hypokalemia Is this a current diagnosis for this admission?: Yes Plan: Resolved. - Time Time Spent with patient: 35 or more minutes
[2018-05-29] MEDS: FINASTERIDE 5 MG TABLET PO SCH (21:30)
[2018-05-29] MEDS: DOXAZOSIN MESYLATE 4 MG TABLET PO SCH (21:30)
[2018-05-30] MEDS: ACETAMINOPHEN 325 MG TABLET PO PRN (04:01)
[2018-05-30] MEDS: NORMAL SALINE 1000 ML 1,000 ML IV PRN (04:14)
[2018-05-30] MEDS: OXYBUTYNIN CHLORIDE 5 MG TABLET PO SCH ×2 (06:03→18:56)
[2018-05-30] MEDS: LANSOPRAZOLE 30 MG TAB.RAP.DR PO SCH (06:03)
[2018-05-30] MEDS: AMLODIPINE BESYLATE 5 MG TABLET PO SCH (09:47)
[2018-05-30] MEDS: LEVETIRACETAM ORAL SOLN 500 MG/5 ML UDCUP PO SCH ×2 (10:30→21:40)
[2018-05-30] MEDS: FUROSEMIDE 20 MG TABLET PO SCH (10:30)
[2018-05-30] MEDS: APIXABAN 5 MG TABLET PO SCH ×2 (10:30→18:56)
[2018-05-30] MEDS: FOLIC ACID 1 MG TABLET PO SCH (12:19)
[2018-05-30] MEDS: SULFAMETHOXAZOLE/TRIMETHOPRIM 800-160 MG TABLET PO SCH ×2 (12:22→18:56)
[2018-05-30] MEDS: METOPROLOL SUCCINATE 50 MG TAB.SR.24H PO SCH (12:24)
[2018-05-30] MEDS: POTASSIUM CHLORIDE 20 MEQ/15 ML UDCUP PO SCH (12:31)
--- NOTE | 2018-05-30 17:15 | PDOC PROGRESS REPORT ---
Subjective Progress Note for:: 05/30/18 Subjective:: Pt seen at bedside and there is no new complaints. Awaiting family visiting the 2 SNF facilities in [facility] to decide on which one they want for SNF placement of pt as recommended by physical therapy. D/W pt's daughter- Ms Shafer, who is POA and addressed all her concerns. Reason For Visit: CHEST PAIN,WEAKNESS,ABNORMAL TROPONIN Physical Exam Vital Signs: Temp Pulse Resp BP Pulse Ox 98.3 F 58 L 15 133/59 H 98 05/30/18 15:05 05/30/18 15:05 05/30/18 15:05 05/30/18 15:05 05/30/18 15:05 Intake & Output 05/29/18 05/30/18 05/31/18 06:59 06:59 06:59 Intake Total 2233 2213 Balance 2233 2213 Weight 71.9 kg 72.2 kg General appearance: PRESENT: no acute distress, cooperative, well-developed, well-nourished Head exam: PRESENT: atraumatic, normocephalic Eye exam: PRESENT: EOMI, PERRLA Ear exam: PRESENT: normal external ear exam, TM's normal bilaterally Mouth exam: PRESENT: neck supple, tongue midline Cardiovascular exam: PRESENT: irregular rhythm, +S1, +S2 Pulses: PRESENT: +1 pedal pulses bilateral GI/Abdominal exam: PRESENT: normal bowel sounds, soft Rectal exam: PRESENT: deferred Neurological exam: PRESENT: alert, awake, oriented to person, oriented to place , oriented to time Psychiatric exam: PRESENT: normal mood Results Laboratory Results: 05/28/18 05:49 05/28/18 05:49 05/24/18 05/24/18 05/25/18 06:45 06:45 05:40 Creatine Kinase 733 H 396 H CK-MB (CK-2) 1.65 Troponin I 0.071 05/25/18 05/26/18 05/27/18 05:40 05:20 06:46 Creatine Kinase 247 H 151 CK-MB (CK-2) 1.11 Troponin I 0.046 05/28/18 05:49 Creatine Kinase 129 CK-MB (CK-2) Troponin I Impressions: Head CT 05/21/18 09:09 IMPRESSION: Chronic changes. 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 Small vessel disease. No acute abnormality. EVIDENCE OF ACUTE STROKE: NO. Chest X-Ray 05/23/18 00:00 IMPRESSION: Cardiomegaly without failure. There appear to be small pleural effusions on the lateral view. Assessment & Plan - Diagnosis (1) Rhabdomyolysis Qualifiers: Encounter type: initial encounter Is this a current diagnosis for this admission?: Yes Plan: Ct with IV fluid normal saline at 75cc/hr cautiously because of hx of CHF. Monitor CK, CMP daily. (2) Urinary tract infection Qualifiers: Urinary tract infection type: site unspecified Is this a current diagnosis for this admission?: Yes Plan: Switch him to Bactrim DS 1 BID Po for 7-10 days as per ID recommendation. Tylenol 650 mg q4h prn po. (3) Fever Qualifiers: Fever type: unspecified Qualified Code(s): R50.9 - Fever, unspecified Is this a current diagnosis for this admission?: Yes (4) Seizure disorder Is this a current diagnosis for this admission?: Yes Plan: Ct with Keppra 1000 mg q12h po. Seizure and falls precautions. F/u neurology consult. (5) Chest pain Is this a current diagnosis for this admission?: Yes (6) Chest pain Qualifiers: Chest pain type: other chest pain Qualified Code(s): R07.89 - Other chest pain; R07.8 - Other chest pain Is this a current diagnosis for this admission?: Yes Plan: Ct with serial cardiac enzymes monitoring and is trending downwards. Cardiolyte stress test is negative and cardiology has signed off. (7) Congestive heart failure, diastolic, left, w/preserved LV function, NYHA class 4 Is this a current diagnosis for this admission?: Yes (8) Congestive heart failure with left ventricular diastolic dysfunction Qualifiers: Congestive heart failure chronicity: chronic Qualified Code(s): I50.32 - Chronic diastolic (congestive) heart failure Is this a current diagnosis for this admission?: Yes Plan: Ct with Lasix 20 mg qd po; Metoprolol succinate 50 mg qd po. Monitor chemistries daily; strict input/output chart. (9) Hypokalemia Is this a current diagnosis for this admission?: Yes Plan: Pt was given KCL 20 MEQ IVx1; we will add KCL 10 MEQ qd po; monitor chemistries daily. (10) Hyponatremia Is this a current diagnosis for this admission?: Yes Plan: Ct with IV fluids normal saline at 75 cc/hr cautiously due to hx of CHF. Ct with fluid restrictions. monitor his chemistries daily. (11) Hypertension Qualifiers: Hypertension type: unspecified Qualified Code(s): I10 - Essential (primary ) hypertension Is this a current diagnosis for this admission?: Yes Plan: Ct with Metoprolol succinate 50mg qd po; Amlodipine 5 mg qd po; Hold BP meds if SBP< 100 or DBP <60;2 g sodium diet. (12) Hyperlipidemia Qualifiers: Hyperlipidemia type: mixed hyperlipidemia Qualified Code(s): E78.2 - Mixed hyperlipidemia Is this a current diagnosis for this admission?: Yes Plan: Hold Atorvastatin 80 mg qhs due to rhabdomyolysis; ct with 200mg cholesterol diet. (13) Atrial fibrillation Qualifiers: Atrial fibrillation type: paroxysmal Qualified Code(s): I48.0 - Paroxysmal atrial fibrillation Is this a current diagnosis for this admission?: Yes Plan: Ct with Metoprolol succinate 50 mg qd po,hold if SBP<100 or DBP <60; Eliquis 5 mg po BID. (14) BPH (benign prostatic hyperplasia) Qualifiers: Lower urinary tract symptom detail: unspecified Is this a current diagnosis for this admission?: Yes Plan: Ct with Proscar 5mg qhs po; Doxazosin 8 mg qhs po. (15) Overactive bladder Is this a current diagnosis for this admission?: Yes Plan: Ct with Oxybutynin 5 mg q12h po. (16) DVT prophylaxis Is this a current diagnosis for this admission?: Yes Plan: Ct with Eliquis 5 mg BID po; SCD.
[2018-05-30] MEDS ORDERED: NORMAL SALINE 1000 ML 1,000 ML IV PRN (18:14)
[2018-05-30 20:13] LABS: ALANINE AMINOTRANSFERASE 27 U/L (21-72); ALKALINE PHOSPHATASE 81 U/L (38-126); ANION GAP 7 (5-19); ASPARTATE AMINO TRANSFERASE 36 U/L (17-59); BILIRUBIN,DIRECT 0.3 mg/dL (0.0-0.4); BILIRUBIN,TOTAL 0.5 mg/dL (0.2-1.3); BLOOD UREA NITROGEN 9 mg/dL (7-20); CALCIUM 8.7 mg/dL (8.4-10.2); CARBON DIOXIDE 27 mmol/L (22-30); CHLORIDE 97 mmol/L (98-107); GLUCOSE 110 mg/dL (75-110); POTASSIUM 4.2 mmol/L (3.6-5.0); SODIUM 130.7 mmol/L (137-145); TOTAL PROTEIN 6.3 g/dL (6.3-8.2)
[2018-05-30] MEDS: DOXAZOSIN MESYLATE 4 MG TABLET PO SCH (21:41)
[2018-05-30] MEDS: FINASTERIDE 5 MG TABLET PO SCH (21:41)
[2018-05-31] MEDS: OXYBUTYNIN CHLORIDE 5 MG TABLET PO SCH ×2 (05:26→18:14)
[2018-05-31] MEDS: LANSOPRAZOLE 30 MG TAB.RAP.DR PO SCH (05:27)
[2018-05-31 07:15] LABS: ABSOLUTE EOSINOPHILS # (AUTO) 0.2 10^3/uL (0.0-0.6); ABSOLUTE LYMPHOCYTES (AUTO) 0.9 10^3/uL (0.5-4.7); ABSOLUTE MONOCYTES (AUTO) 0.5 10^3/uL (0.1-1.4); ABSOLUTE NEUT (AUTO) 3.5 10^3/uL (1.7-8.2); BASOPHILS % (AUTO) 0.9 % (0-2); HEMATOCRIT 29.8 % (37.9-51.0); HEMOGLOBIN 10.3 g/dL (13.5-17.0); LYMPHOCYTES % (AUTO) 18.3 % (13-45); MEAN CORPUSCULAR HEMOGLOBIN 29.7 pg (27.0-33.4); MEAN CORPUSCULAR HGB CONC 34.5 g/dL (32.0-36.0); MEAN CORPUSCULAR VOLUME 86 fl (80-97); MONOCYTES % (AUTO) 9.8 % (3-13); PLATELET COUNT 286 10^3/uL (150-450); RED BLOOD COUNT 3.47 10^6/uL (4.35-5.55); RED CELL DISTRIBUTION WIDTH 13.5 % (11.5-14.0); TOTAL CELLS COUNTED % (AUTO) 100 %; WHITE BLOOD COUNT 5.2 10^3/uL (4.0-10.5)
[2018-05-31 07:34] LABS: ALANINE AMINOTRANSFERASE 35 U/L (21-72); ALBUMIN 3.2 g/dL (3.5-5.0); ALKALINE PHOSPHATASE 93 U/L (38-126); ANION GAP 10 (5-19); ASPARTATE AMINO TRANSFERASE 36 U/L (17-59); BILIRUBIN,DIRECT 0.2 mg/dL (0.0-0.4); BILIRUBIN,TOTAL 0.6 mg/dL (0.2-1.3); BLOOD UREA NITROGEN 9 mg/dL (7-20); CALCIUM 8.8 mg/dL (8.4-10.2); CARBON DIOXIDE 24 mmol/L (22-30); CHLORIDE 97 mmol/L (98-107); GLUCOSE 96 mg/dL (75-110); POTASSIUM 4.3 mmol/L (3.6-5.0); SODIUM 131.3 mmol/L (137-145); TOTAL PROTEIN 6.8 g/dL (6.3-8.2)
[2018-05-31] MEDS: AMLODIPINE BESYLATE 5 MG TABLET PO SCH (09:23)
[2018-05-31] MEDS: METOPROLOL SUCCINATE 50 MG TAB.SR.24H PO SCH (09:24)
[2018-05-31] MEDS: POTASSIUM CHLORIDE 20 MEQ/15 ML UDCUP PO SCH (09:26)
[2018-05-31] MEDS: FUROSEMIDE 20 MG TABLET PO SCH (09:26)
[2018-05-31] MEDS: FOLIC ACID 1 MG TABLET PO SCH (09:26)
[2018-05-31] MEDS: SULFAMETHOXAZOLE/TRIMETHOPRIM 800-160 MG TABLET PO SCH ×2 (09:27→18:15)
[2018-05-31] MEDS: APIXABAN 5 MG TABLET PO SCH ×2 (09:29→18:15)
[2018-05-31] MEDS: LEVETIRACETAM ORAL SOLN 500 MG/5 ML UDCUP PO SCH (09:30)
--- NOTE | 2018-05-31 14:51 | PDOC TRANSFER SUMMARY ---
General - Admit/Disc Date/PCP Admission Date/Primary Care Provider: 05/23/18 15:22 EDWIN FLYNN Discharge Date: 05/31/18 - Discharge Diagnosis (1) Rhabdomyolysis Is this a current diagnosis for this admission?: Yes (2) Urinary tract infection Is this a current diagnosis for this admission?: Yes (3) Fever Is this a current diagnosis for this admission?: Yes (4) Seizure disorder Is this a current diagnosis for this admission?: Yes (5) Chest pain Is this a current diagnosis for this admission?: Yes (6) Chest pain Is this a current diagnosis for this admission?: Yes (7) Congestive heart failure, diastolic, left, w/preserved LV function, NYHA class 4 Is this a current diagnosis for this admission?: Yes (8) Congestive heart failure with left ventricular diastolic dysfunction Is this a current diagnosis for this admission?: Yes (9) Hypokalemia Is this a current diagnosis for this admission?: Yes (10) Hyponatremia Is this a current diagnosis for this admission?: Yes (11) Hypertension Is this a current diagnosis for this admission?: Yes (12) Hyperlipidemia Is this a current diagnosis for this admission?: Yes (13) Atrial fibrillation Is this a current diagnosis for this admission?: Yes (14) BPH (benign prostatic hyperplasia) Is this a current diagnosis for this admission?: Yes (15) Overactive bladder Is this a current diagnosis for this admission?: Yes (16) DVT prophylaxis Is this a current diagnosis for this admission?: Yes - Additional Information Resuscitation Status: Full Code Home Medications: Amlodipine Besylate [Norvasc 5 mg Tablet] 5 mg PO DAILY 05/21/18 Apixaban [Eliquis 5 mg Tablet] 5 mg PO BID 05/21/18 Atorvastatin Calcium [Lipitor 40 mg Tablet] 40 mg PO QHS 05/21/18 Finasteride [Proscar 5 mg Tablet] 5 mg PO QHS 05/21/18 Folic Acid [Folvite 1 mg Tablet] 1 mg PO DAILY 05/21/18 Furosemide [Lasix 20 mg Tablet] 20 mg PO QAM 05/21/18 Levetiracetam [Keppra] 1,000 mg PO Q12 05/21/18 Metoprolol Succinate [Toprol Xl 50 mg Tab.sr] 50 mg PO DAILY 05/21/18 Oxybutynin Chloride [Ditropan Xl] 10 mg PO DAILY 05/21/18 Pantoprazole Sodium [Protonix] 40 mg PO Q6AM 05/21/18 Terazosin HCl [Hytrin] 10 mg PO QHS 05/21/18 History of Present Illness Admission Date/PCP: 05/23/18 15:22 EDWIN FLYNN History of Present Illness: EVELIA HESS is a 77 year old male Hospital Course Hospital Course: 77 year old man who was admitted for chest pain and [place] was ruled out and he had negative cardiolyte stress test. He also was treated for rhabdomyolysis with IV fluids and UTI secondary to MSSA. He had Levaquin IV and later Vancomycin for 2 days and later changed to Bactrim after sensitivity result came out. He had CT head that did not show any acute abnormality, and we could not do MRI head on account of presence of pacemaker. Pt had EEG that showed periodic lateralized epileptiform discharges suggestive of structural lesion. We could not get neurology consult in house. Pt was seen by physical therapy and on account of deconditioning, they recommended SNF for REHAB. We discussed this with pt, his daughter and son, Ms Surekha Hess and Mr Perez respectively and they are in agreement.Pt was accepted at [facility] for REHAB. He will also follow up with neurologist on outpatient to review the EEG report and make recommendations. Discharge medications- Keppra 1000mg BID po Lasix 20 mg daily po KCL 10 MEQ daily po Amlodipine 5 mg daily po Eliquis 5 mg BID po Doxazosin 8mg qhs po Finasteride 5 mg qhs po Metoprolol succinate 50 mg daily po Oxybutynin 5mmg BID po Bactrim DS 1 BID po for 5 days ie #10. Physical Exam Vital Signs: Temp Pulse Resp BP Pulse Ox 98.5 F 59 L 14 164/76 H 99 05/31/18 08:26 05/31/18 08:26 05/31/18 08:26 05/31/18 08:26 05/31/18 08:26 Intake & Output 05/30/18 05/31/18 06/01/18 06:59 06:59 06:59 Intake Total 2213 1436 Balance 2213 1436 Weight 72.2 kg 71.8 kg General appearance: PRESENT: no acute distress, cooperative, well-developed, well-nourished Head exam: PRESENT: atraumatic, normocephalic Eye exam: PRESENT: EOMI, PERRLA Mouth exam: PRESENT: neck supple, tongue midline Neck exam: PRESENT: full ROM Respiratory exam: PRESENT: clear to auscultation ekta, decreased breath sounds, symmetrical Cardiovascular exam: PRESENT: irregular rhythm, +S1, +S2 GI/Abdominal exam: PRESENT: normal bowel sounds, soft Rectal exam: PRESENT: deferred Neurological exam: PRESENT: alert, awake, oriented to person, oriented to place , oriented to time Psychiatric exam: PRESENT: normal mood Results Laboratory Results: 05/31/18 07:02 05/31/18 07:02 05/30/18 05/30/18 05/31/18 17:16 19:40 07:02 WBC 5.2 RBC 3.47 L Hgb 10.3 L Hct 29.8 L MCV 86 MCH 29.7 MCHC 34.5 RDW 13.5 Plt Count 286 Seg Neutrophils % 67.0 Lymphocytes % 18.3 Monocytes % 9.8 Eosinophils % 4.0 Basophils % 0.9 Absolute Neutrophils 3.5 Absolute Lymphocytes 0.9 Absolute Monocytes 0.5 Absolute Eosinophils 0.2 Absolute Basophils 0.0 Sodium Cancelled 130.7 L Potassium Cancelled 4.2 Chloride Cancelled 97 L Carbon Dioxide Cancelled 27 Anion Gap Cancelled 7 BUN Cancelled 9 Creatinine Cancelled 0.50 L Est GFR ( Amer) Cancelled > 60 Est GFR (Non-Af Amer) Cancelled > 60 Glucose Cancelled 110 Calcium Cancelled 8.7 Total Bilirubin Cancelled 0.5 AST Cancelled 36 ALT Cancelled 27 Alkaline Phosphatase Cancelled 81 Total Protein Cancelled 6.3 Albumin Cancelled 3.0 L 05/31/18 07:02 WBC RBC Hgb Hct MCV MCH MCHC RDW Plt Count Seg Neutrophils % Lymphocytes % Monocytes % Eosinophils % Basophils % Absolute Neutrophils Absolute Lymphocytes Absolute Monocytes Absolute Eosinophils Absolute Basophils Sodium 131.3 L Potassium 4.3 Chloride 97 L Carbon Dioxide 24 Anion Gap 10 BUN 9 Creatinine 0.48 L Est GFR ( Amer) > 60 Est GFR (Non-Af Amer) > 60 Glucose 96 Calcium 8.8 Total Bilirubin 0.6 AST 36 ALT 35 Alkaline Phosphatase 93 Total Protein 6.8 Albumin 3.2 L 05/24/18 05/24/18 05/25/18 06:45 06:45 05:40 Creatine Kinase 733 H 396 H CK-MB (CK-2) 1.65 Troponin I 0.071 05/25/18 05/26/18 05/27/18 05:40 05:20 06:46 Creatine Kinase 247 H 151 CK-MB (CK-2) 1.11 Troponin I 0.046 05/28/18 05:49 Creatine Kinase 129 CK-MB (CK-2) Troponin I Impressions: Head CT 05/21/18 09:09 IMPRESSION: Chronic changes. 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 Small vessel disease. No acute abnormality. EVIDENCE OF ACUTE STROKE: NO. Chest X-Ray 05/23/18 00:00 IMPRESSION: Cardiomegaly without failure. There appear to be small pleural effusions on the lateral view. Transfer Plan - Time Spent with Patient Time spent with patient: Greater than 30 Minutes Qualifiers - * PATIENT BEING DISCHARGED WITH ANY OF THE FOLLOWING DIAGNOSIS: No
[2018-05-31 16:32] VITALS: BP 119/59
== END 2018-05-31 19:07 | DRG 558 ==
LOC: ER 08:45 → EH 15:01 → INTOOBSV 15:01 → 4S 16:39 → OBSVTOIN 05-23 15:22
PROVIDERS: ADMIT Internal Medicine; ATTEND Internal Medicine
DX: M62.82 Rhabdomyolysis (principal); I50.32 Chronic diastolic (congestive) heart failure; E87.1 Hypo-osmolality and hyponatremia; N39.0 Urinary tract infection, site not specified; G40.909 Epilepsy, unspecified, not intractable, without status epilepticus; N40.0 Benign prostatic hyperplasia without lower urinary tract symptoms; K21.9 Gastro-esophageal reflux disease without esophagitis; E87.6 Hypokalemia; I11.0 Hypertensive heart disease with heart failure; I48.0 Paroxysmal atrial fibrillation; E78.2 Mixed hyperlipidemia; N32.81 Overactive bladder; R07.89 Other chest pain; B95.61 Methicillin susceptible Staphylococcus aureus infection as the cause of diseases classified elsewhere; Z95.0 Presence of cardiac pacemaker; Z86.73 Personal history of transient ischemic attack (TIA), and cerebral infarction without residual deficits; Z75.1 Person awaiting admission to adequate facility elsewhere
CPT/HCPCS: 36415; 70450; 71045; 71046; 78452; 80048; 80053; 80202; 81001; 82550; 82553; 83735; 84484; 85025; 85027; 85610; 87040; 87086; 87088; 87186; 93005; 93010; 93017; 93306; 95819; 96360; 96361; 99285; A9500; G0378; G8978-GP; G8979-GP; G8987-GO; G8988-GO; J1956; J2785; J3370; J3480; J3490; J7030; J7060; S0119

== ENCOUNTER 2018-07-16 16:59 | Emergency (ER) | payer MEDICARE, OTHER ==
--- NOTE | 2018-07-16 18:58 | RADIOLOGY REPORT (SQ) ---
EXAM DESCRIPTION: U/S SCROTUM W/DOPPLER COMPLETED DATE/TIME: 07/16/2018 6:43 pm REASON FOR STUDY: bed 20 per provider laura COMPARISON: None. TECHNIQUE: Static and realtime del rosario scale imaging of the scrotum and testes. Selected color Doppler and spectral images recorded to document blood flow. LIMITATIONS: None. FINDINGS: RIGHT: TESTICLE: Complex heterogenous mass in the mid testicle measuring 1.7 x 2.4 x 3.3 cm with increased v ascularity. EPIDIDYMIS: Normal. HYDROCELE OR VARICOCELE: No. HERNIA OR EXTRA-TESTICULAR MASS: No. OTHER: No other significant finding. LEFT: TESTICLE: Normal size. Normal echotexture. Normal blood flow. No mass. EPIDIDYMIS: 10 mm cyst. HYDROCELE OR VARICOCELE: No. HERNIA OR EXTRA-TESTICULAR MASS: No. OTHER: No other significant finding. IMPRESSION: COMPLEX HETEROGENOUS MASS IN THE RIGHT TESTICLE WITH INCREASED VASCULARITY. RECOMMEND F OLLOW-UP WITH UROLOGY. NO EVIDENCE OF TORSION. TECHNICAL DOCUMENTATION: JOB ID: [id number] [employer]- All Rights Reserved Reading location - IP/workstation name: [email or web address]
--- NOTE | 2018-07-16 20:09 | ER Document Report ---
ED GI/ - General Chief Complaint: Testicular Pain Stated Complaint: TESTICLE PAIN Time Seen by Provider: 07/16/18 19:30 Notes: Patient is a 77-year-old male that comes to the emergency department for chief complaint of swelling in the testicular area and intermittent discomfort, he denies severe pain, vomiting, injury, dysuria, rash, fever. Patient denies any current complaints. Patient comes [facility] by EMS. Past medical history includes epilepsy, hypertension, BPH, AICD. TRAVEL OUTSIDE OF THE [place] IN LAST 30 DAYS: No - Related Data Allergies/Adverse Reactions: No Known Allergies Allergy (Verified 05/21/18 15:32) Past Medical History - General Information source: Patient - Social History Smoking Status: Former Smoker Frequency of alcohol use: None Drug Abuse: None Lives with: Detention Family History: Hypertension Patient has suicidal ideation: No Patient has homicidal ideation: No - Past Medical History Cardiac Medical History: Reports: Hx Congestive Heart Failure, Hx Hypercholesterolemia, Hx Hypertension Denies: Hx Heart Attack Pulmonary Medical History: Denies: Hx Asthma, Hx Bronchitis, Hx COPD, Hx Pneumonia, Hx Tuberculosis Neurological Medical History: Reports: Hx Cerebrovascular Accident, Hx Seizures Renal/ Medical History: Reports: Hx Benign Prostatic Hyperplasia, Hx Renal Insufficiency. Denies: Hx End Stage Renal Disease, Hx Kidney Stones, Hx Peritoneal Dialysis GI Medical History: Reports: Hx Gastroesophageal Reflux Disease, Hx Colonoscopy , Hx Endoscopy. Denies: Hx Cirrhosis, Hx Ulcer Musculoskeletal Medical History: Denies Hx Arthritis, Denies Hx Multiple Sclerosis, Reports Hx Musculoskeletal Deformity Psychiatric Medical History: Denies: Hx Bipolar Disorder, Hx Depression, Hx Schizophrenia Past Surgical History: Reports: Hx Cardiac Surgery - pacemaker, Other - Pacemaker placement Review of Systems - Review of Systems Constitutional: No symptoms reported EENT: No symptoms reported Cardiovascular: No symptoms reported Respiratory: No symptoms reported Gastrointestinal: No symptoms reported Genitourinary: See HPI Male Genitourinary: No symptoms reported Musculoskeletal: No symptoms reported Skin: No symptoms reported Hematologic/Lymphatic: No symptoms reported Neurological/Psychological: No symptoms reported Physical Exam - Vital signs Vitals: Temp Pulse Resp BP Pulse Ox 99.0 F 70 16 127/80 H 100 07/16/18 17:19 07/16/18 17:19 07/16/18 17:19 07/16/18 17:19 07/16/18 17:19 - Notes Notes: GENERAL: Alert, interacts well. No acute distress. HEAD: Normocephalic, atraumatic. EYES: Pupils equal, round, and reactive to light. Extraocular movements intact. ENT: Oral mucosa moist, tongue midline. NECK: Full range of motion. Supple. Trachea midline. LUNGS: Clear to auscultation bilaterally, no wheezes, rales, or rhonchi. No respiratory distress. HEART: Regular rate and rhythm. No murmur ABDOMEN: Soft, non-tender. Non-distended. Bowel sounds present in all 4 quadrants. GENITOURINARY: No tenderness noted over the testicular exam although there is a large swollen area on the left and a firm area on the right. No erythema, fluctuance, induration, no discharge or rash, no abnormalities noted otherwise. EXTREMITIES: Moves all 4 extremities spontaneously. No edema, normal radial and dorsalis pedis pulses bilaterally. No cyanosis. BACK: no cervical, thoracic, lumbar midline tenderness. No saddle anesthesia, normal distal neurovascular exam. NEUROLOGICAL: Alert and oriented x3. Normal speech. [cranial nerves II through XII grossly intact]. PSYCH: Normal affect, normal mood. SKIN: Warm, dry, normal turgor. No rashes or lesions noted. Course - Re-evaluation Re-evalutation: Exam concerning for painless mass and lump. Otherwise unremarkable. Patient in no distress. Nontender on exam. Unremarkable vital signs. Spoke with Dr. Del Angel, urologist, discussed presentation and ultrasound. He recommends alpha-fetoprotein, LFTs, and hCG quantitative to be performed, close follow-up on Wednesday for additional evaluation and management. These were ordered. I discussed details with patient including suspected cancer, close urology follow-up, and return precautions. Patient states understanding and agreement. - Vital Signs Vital signs: Temp Pulse Resp BP Pulse Ox 98.6 F 81 16 115/67 100 07/16/18 23:23 07/16/18 23:23 07/16/18 23:23 07/16/18 23:23 07/16/18 23:23 - Laboratory Result Diagrams: 07/16/18 20:20 Discharge - Discharge Clinical Impression: Testicular swelling, Testicular mass Condition: Stable Disposition: SNF-Other Additional Instructions: I spoke with Dr. Del Angel, Urologist on site construction superintendent, we have ordered additional workup labs because there is an area on the testicle that appears to be a mass in addition to an area that is a large cyst. This needs close follow-up, please call the listed referral below and be seen in the office on Wednesday for additional evaluation and management. Return sooner if you develop severe swelling, pain, fever, vomiting, etc. [facility] [address] [place], [place] [id number] Referrals: EDWIN FLYNN MD [Primary Care Provider] - Follow up as needed
[2018-07-16 21:00] LABS: ALANINE AMINOTRANSFERASE 21 U/L (21-72); ALBUMIN 3.8 g/dL (3.5-5.0); ALKALINE PHOSPHATASE 105 U/L (38-126); ANION GAP 7 (5-19); ASPARTATE AMINO TRANSFERASE 19 U/L (17-59); BILIRUBIN,DIRECT 0.2 mg/dL (0.0-0.4); BLOOD UREA NITROGEN 10 mg/dL (7-20); CALCIUM 9.5 mg/dL (8.4-10.2); CARBON DIOXIDE 30 mmol/L (22-30); CHLORIDE 100 mmol/L (98-107); GLUCOSE 99 mg/dL (75-110); POTASSIUM 4.7 mmol/L (3.6-5.0); TOTAL PROTEIN 7.3 g/dL (6.3-8.2)
[2018-07-16 23:27] VITALS: BP 115/67
== END 2018-07-16 23:27 ==
LOC: ER 16:59
DX: N50.89 Other specified disorders of the male genital organs (principal); I10 Essential (primary) hypertension; Z87.891 Personal history of nicotine dependence
CPT/HCPCS: 36415; 76870; 80053; 82105; 84702; 93976; 99285

== ENCOUNTER → 2018-09-19 | Outpatient (CLI) | payer MEDICARE ==
--- NOTE | 2018-09-19 10:46 | RADIOLOGY REPORT (SQ) ---
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 Selected color Doppler and spectral images recorded to document blood flow. LIMITATIONS: None. FINDINGS: RIGHT: TESTICLE: Right testicle is 4.6 x 2.3 x 1.9 cm in size, with slightly heterogeneous internal echogeni city. An intra testicular venous varix is present. No discrete intra testicular mass is identified. EPIDIDYMIS: Epididymis is diffusely mildly enlarged with ectatic tubules throughout. This finding ac counts for the "complex heterogeneous mass in the right testicle" seen 07/16/2018. HYDROCELE OR VARICOCELE: No. HERNIA OR EXTRA-TESTICULAR MASS: No. OTHER: No other significant finding. LEFT: TESTICLE: The left testicle is 4.3 x 3.2 x 1.9 cm in size, with slightly heterogeneous internal echog enicity. An intra testicular benign venous varix is present EPIDIDYMIS: Epididymis is diffusely mildly enlarged with ectatic tubules throughout. This is similar compared to the right epididymis. HYDROCELE OR VARICOCELE: No. HERNIA OR EXTRA-TESTICULAR MASS: No. OTHER: No other significant finding. IMPRESSION: Normal size testes without evidence of testicular torsion by Doppler exam. No intra delmi ticular masses. Bilateral prominent epididymi with enlarged tubules, benign intra testicular venous varices, age-appr opriate TECHNICAL DOCUMENTATION: JOB ID: [id number] [employer]- All Rights Reserved Reading location - IP/workstation name: [email or web address]
== END ==
LOC: RAD 09:19
PROVIDERS: ATTEND Urology
DX: N50.9 Disorder of male genital organs, unspecified (principal)
CPT/HCPCS: 76870; 93976

== ENCOUNTER → 2019-11-01 | Outpatient (CLI) | payer MEDICARE ==
--- NOTE | 2019-11-01 12:45 | RADIOLOGY REPORT (SQ) ---
EXAM DESCRIPTION: SHOULDER RIGHT 2 OR MORE VIEWS COMPLETED DATE/TIME: 11/01/2019 12:25 pm REASON FOR STUDY: COMPLETE ROTATR-CUFF TEAR/RUPTR OF R SHOULDER, NOT TRAUMA M75.121 COMPLETE ROTATR -CUFF TEAR/RUPTR OF R SHOULDER, NOT T COMPARISON: None. NUMBER OF VIEWS: Three views. TECHNIQUE: Internal rotation, external rotation, and Y view images acquired of the right shoulder. LIMITATIONS: None. FINDINGS: MINERALIZATION: Normal. BONES: No acute fracture. No worrisome bone lesions. JOINTS: There is marked narrowing of the subacromial space. VISUALIZED LUNGS AND RIBS: No pneumothorax. No rib fracture. SOFT TISSUES: No radiopaque foreign body. OTHER: No other significant finding. IMPRESSION: Chronic rotator cuff disease. No acute finding. TECHNICAL DOCUMENTATION: JOB ID: [id number] [employer]- All Rights Reserved Reading location - IP/workstation name: [email or web address]
== END ==
LOC: OD 12:12
PROVIDERS: ATTEND Internal Medicine
DX: M75.121 Complete rotator cuff tear or rupture of right shoulder, not specified as traumatic (principal)

== ENCOUNTER 2019-11-28 07:17 | Emergency (ER) | payer OTHER, MEDICARE ==
--- NOTE | 2019-11-28 11:10 | RADIOLOGY REPORT (SQ) ---
EXAM DESCRIPTION: CT HEAD WITHOUT COMPLETED DATE/TIME: 11/28/2019 10:58 am REASON FOR STUDY: Fall COMPARISON: 05/21/2018 TECHNIQUE: Axial images acquired through the brain without intravenous contrast. Images reviewed wi th bone, brain and subdural windows. Additional sagittal and coronal reconstructions were generated. Images stored on PACS. All CT scanners at this facility use dose modulation, iterative reconstruction, and/or weight based d osing when appropriate to reduce radiation dose to as low as reasonably achievable (ALARA). [facility]: Dose Right [facility]: CareDose [facility]: Dose Right [facility]: Teradose 4D [facility]: OffScale RADIATION DOSE: CT Rad equipment meets quality standard of care and radiation dose reduction techniq ues were employed. CTDIvol: 53.2 mGy. DLP: 1044 mGy-cm.mGy. LIMITATIONS: None. FINDINGS: VENTRICLES: Prominent. CEREBRUM: Old right MCA territory infarct. No acute infarct. No hemorrhage or extra-axial fluid col lection. CEREBELLUM: No masses. No hemorrhage. No alteration of density. No evidence for acute infarction. EXTRAAXIAL SPACES: Age-related involutional change. No fluid collections. No masses. ORBITS AND GLOBE: No intra- or extraconal masses. Normal contour of globe without masses. CALVARIUM: Right frontal craniotomy. PARANASAL SINUSES: No fluid or mucosal thickening. SOFT TISSUES: No mass or hematoma. OTHER: No other significant finding. IMPRESSION: CHRONIC CHANGES OF ATROPHY AND MICROVASCULAR ISCHEMIA. NO ACUTE PROCESS. EVIDENCE OF ACUTE STROKE: NO. TECHNICAL DOCUMENTATION: JOB ID: [id number] Quality ID # [id number]: Final reports with documentation of one or more dose reduction techniques (e.g., Au tomated exposure control, adjustment of the mA and/or kV according to patient size, use of iterative reconstruction technique) 2010 [employer]- All Rights Reserved Reading location - IP/workstation name: [email or web address]
--- NOTE | 2019-11-28 11:39 | RADIOLOGY REPORT (SQ) ---
EXAM DESCRIPTION: CT CERVICAL SPINE WITHOUT COMPLETED DATE/TIME: 11/28/2019 10:58 am REASON FOR STUDY: Fall COMPARISON: None. TECHNIQUE: Axial images acquired through the cervical spine without intravenous contrast. Images re viewed with lung, soft tissue and bone windows. Reconstructed coronal and sagittal MPR images review ed. Images stored on PACS. All CT scanners at this facility use dose modulation, iterative reconstruction, and/or weight based d osing when appropriate to reduce radiation dose to as low as reasonably achievable (ALARA). [facility]: Dose Right [facility]: CareDose [facility]: Dose Right [facility]: Teradose 4D [facility]: Rumgr RADIATION DOSE: CT Rad equipment meets quality standard of care and radiation dose reduction techniq ues were employed. CTDIvol: 19.0 mGy. DLP: 382 mGy-cm. mGy. LIMITATIONS: None. FINDINGS: ALIGNMENT: Reversal of the lordotic curve. MINERALIZATION: Normal. VERTEBRAL BODIES: No fractures or dislocation. DISCS: Multilevel disc space narrowing with osteophytes. FACETS, LATERAL MASSES, POSTERIOR ELEMENTS: Facet arthropathy. No fractures. No dislocation. No ac kletsel dehe wintun findings. HARDWARE: None in the spine. VISUALIZED RIBS: No fractures. LUNG APICES AND SOFT TISSUES: No significant or acute findings. OTHER: No other significant finding. IMPRESSION: CHRONIC DEGENERATIVE CHANGES. NO ACUTE FINDINGS. TECHNICAL DOCUMENTATION: JOB ID: [id number] Quality ID # [id number]: Final reports with documentation of one or more dose reduction techniques (e.g., Au tomated exposure control, adjustment of the mA and/or kV according to patient size, use of iterative reconstruction technique) 2010 [employer]- All Rights Reserved Reading location - IP/workstation name: [email or web address]
[2019-11-28 13:39] LABS: ABSOLUTE BASOPHILS # (AUTO) 0.1 10^3/uL (0.0-0.2); ABSOLUTE LYMPHOCYTES (AUTO) 1.2 10^3/uL (0.5-4.7); ABSOLUTE MONOCYTES (AUTO) 0.7 10^3/uL (0.1-1.4); BASOPHILS % (AUTO) 0.5 % (0-2); EOSINOPHILS % (AUTO) 0.1 % (0-6); HEMATOCRIT 30.4 % (37.9-51.0); HEMOGLOBIN 10.3 g/dL (13.5-17.0); LYMPHOCYTES % (AUTO) 8.9 % (13-45); MEAN CORPUSCULAR HEMOGLOBIN 29.3 pg (27.0-33.4); MEAN CORPUSCULAR HGB CONC 34.1 g/dL (32.0-36.0); MEAN CORPUSCULAR VOLUME 86 fl (80-97); MONOCYTES % (AUTO) 5.8 % (3-13); PLATELET COUNT 212 10^3/uL (150-450); RED BLOOD COUNT 3.54 10^6/uL (4.35-5.55); RED CELL DISTRIBUTION WIDTH 14.9 % (11.5-14.0); SEGMENTED NEUTROPHILS % (AUTO) 84.7 % (42-78); TOTAL CELLS COUNTED % (AUTO) 100 %
[2019-11-28 13:40] LABS: PROTHROMBIN TIME 15.3 SEC (11.4-15.4)
[2019-11-28 13:56] LABS: APPEARANCE,URINE SLIGHTLY-CLOUDY; BILIRUBIN,URINE NEGATIVE (NEGATIVE); COLOR,URINE YELLOW; GLUCOSE, URINE NEGATIVE (NEGATIVE); KETONES,URINE 20 mg/dL (NEGATIVE); LEUKOCYTE ESTERASE,URINE MODERATE (NEGATIVE); NITRITE,URINE POSITIVE (NEGATIVE); PROTEIN,URINE 30 mg/dL (NEGATIVE); URINE SPECIFIC GRAVITY 1.018; UROBILINOGEN,URINE NEGATIVE mg/dL (<2.0)
[2019-11-28 13:57] LABS: ALBUMIN 4.2 g/dL (3.5-5.0); ALKALINE PHOSPHATASE 115 U/L (38-126); ANION GAP 13 (5-19); ASPARTATE AMINO TRANSFERASE 77 U/L (17-59); BILIRUBIN,DIRECT 0.2 mg/dL (0.0-0.4); BILIRUBIN,TOTAL 1.4 mg/dL (0.2-1.3); BLOOD UREA NITROGEN 22 mg/dL (7-20); CALCIUM 9.2 mg/dL (8.4-10.2); CARBON DIOXIDE 23 mmol/L (22-30); CHLORIDE 105 mmol/L (98-107); GLUCOSE 115 mg/dL (75-110); POTASSIUM 4.4 mmol/L (3.6-5.0)
[2019-11-28] MEDS ORDERED: AMOXICILLIN TR/POT CLAVULANATE 500-125 MG TAB PO ONE (15:16)
[2019-11-28 17:34] VITALS: BP 132/65
--- NOTE | 2019-11-30 09:26 | ER Document Report ---
Entered by LUTHER SIFUENTES SCRIBE 11/28/19 0838 Acting as scribe for:MACI DRAKE MD ED General - General Chief Complaint: Fall Stated Complaint: BILATERAL LEG PAIN Time Seen by Provider: 11/28/19 07:47 Primary Care Provider: EDWIN FLYNN MD [Primary Care Provider] - Follow up as needed Information source: Patient Notes: 79 year old male presents to the emergency department via EMS complaining of bilateral leg swelling that began 1 month ago. Patient states that when he went for a walk, his swelling worsened until he "couldn't walk". Patient reports that he fell on the back of his head this morning about 2 hours prior to arrival. Patient lives alone and reports that he took his meds this morning. Patient mentions that the dried blood on his chin has been occurring for 2 months. Patient denies CAD history, nose bleeds and chills. TRAVEL OUTSIDE OF THE [place] IN LAST 30 DAYS: No - Related Data Allergies/Adverse Reactions: No Known Allergies Allergy (Verified 05/21/18 15:32) Past Medical History - General Information source: Patient - Social History Smoking Status: Never Smoker Cigarette use (# per day): No Chew tobacco use (# tins/day): No Lives with: Alone Family History: Hypertension Patient has suicidal ideation: No Patient has homicidal ideation: No - Past Medical History Cardiac Medical History: Reports: Hx Congestive Heart Failure, Hx Hypercholesterolemia, Hx Hypertension Neurological Medical History: Reports: Hx Cerebrovascular Accident, Hx Seizures Renal/ Medical History: Reports: Hx Benign Prostatic Hyperplasia, Hx Renal Insufficiency GI Medical History: Reports: Hx Gastroesophageal Reflux Disease, Hx Colonoscopy, Hx Endoscopy Musculoskeletal Medical History: Reports Hx Musculoskeletal Deformity Past Surgical History: Reports: Hx Cardiac Surgery - pacemaker Review of Systems - Review of Systems Constitutional: No symptoms reported EENT: No symptoms reported Cardiovascular: No symptoms reported Respiratory: No symptoms reported Gastrointestinal: No symptoms reported Genitourinary: No symptoms reported Male Genitourinary: No symptoms reported Musculoskeletal: See HPI, Leg swelling - bilateral Skin: No symptoms reported Hematologic/Lymphatic: No symptoms reported Neurological/Psychological: No symptoms reported -: Yes All other systems reviewed and negative Physical Exam - Vital signs Vitals: Temp Pulse Resp BP Pulse Ox 97.9 F 99 20 147/85 H 100 11/28/19 07:21 11/28/19 07:21 11/28/19 07:21 11/28/19 07:21 11/28/19 07:21 - Notes Notes: General: Alert, appears well. HEENT: Normocephalic. Atraumatic. PERRL. Extraocular movements intact. Oroph arynx clear. TMs are clear bilaterally. Very poor dentition throughout- all upper teeth are absent and lower teeth are essentially broken down to stubs and caries. Neck: Supple. Non-tender. Respiratory: No respiratory distress. Clear and equal breath sounds bilaterally. Cardiovascular: Regular rate and rhythm. Abdominal: Normal Inspection. Non-tender. No distension. Normal Bowel Sounds. Back: No gross abnormalities. Extremities: Moves all four extremities. Upper extremities: Normal inspection. Normal ROM. Lower extremities: Pitting edema bilaterally. Normal ROM. Neurological: Normal cognition. AAOx4. Normal speech. Decrease in sensation in left upper extremity at baseline from prior CVA. Psychological: Normal affect. Normal Mood. Skin: Warm. Dry. Normal color. Course - Re-evaluation Re-evalutation: 11/28/19 16:10 Patient is much more alert not showing any signs of distress hemodynamically stable. Pulse rechecked inpatient had normal orthostatic exam. Without fainting or passing out and did not have any drop in blood pressure or increased pulse. CT scan of head chronic ischemic changes but no acute infarct. CT scan of neck shows degenerative joint disease no acute fractures. Patient has a urinary tract infection and a 13,000 white count not showing any signs of fever at this time. Patient is drinking p.o. and and eating at this time. And is to discharge patient home on Augmentin. An ultrasound was done of his right leg to prove that the swelling was not due to a deep vein thrombosis. There was no thrombosis found on the ultrasound. - Vital Signs Vital signs: Temp Pulse Resp BP Pulse Ox 98.3 F 99 18 136/78 H 100 11/28/19 13:32 11/28/19 13:32 11/28/19 13:32 11/28/19 13:32 11/28/19 13:32 - Laboratory Result Diagrams: 11/28/19 13:11 11/28/19 13:11 Laboratory results interpreted by me: 11/28/19 11/28/19 11/28/19 13:11 13:11 13:37 WBC 13.0 H RBC 3.54 L Hgb 10.3 L Hct 30.4 L RDW 14.9 H Lymph % (Auto) 8.9 L Absolute Neuts (auto) 11.0 H Seg Neutrophils % 84.7 H BUN 22 H Glucose 115 H Total Bilirubin 1.4 H AST 77 H Urine Protein 30 H Urine Ketones 20 H Urine Blood LARGE H Urine Nitrite POSITIVE H Ur Leukocyte Esterase MODERATE H Discharge - Discharge Clinical Impression: Urinary tract infection, Leukocytosis, Leg edema, right, Accidental fall Condition: Stable Disposition: HOME, SELF-CARE Instructions: Urinary Tract Infection ([facility]) Additional Instructions: Urinary Tract Infection Your evaluation indicates that you have a urinary tract infection. This is due to germs growing in the bladder. This is a common problem. This infection usually responds quickly to antibiotics. Your antibiotic should be taken exactly as prescribed. Drink plenty of fluids -- three to four quarts a day. Occasionally, a bladder anesthetic will be prescribed to help stop the feeling of urgency until the antibiotic has a chance to clear the infection. This may cause your urine to be dark orange. Certain urine infections require a culture. If the doctor obtained a culture, the results will be back in two days. You should call to see if a change in treatment is needed. A repeat urinalysis after you finish treatment is often recommended. The physician will let you know if further testing is required. Call the doctor if you develop fever, chills, flank pain, inability to urinate, or blood in the urine. Prescriptions: Amoxicillin/Potassium Clav [Augmentin 500-125 Tablet] 1 tab PO TID 10 Days #30 tablet Referrals: EDWIN FLYNN MD [Primary Care Provider] - Follow up as needed I personally performed the services described in the documentation, reviewed and edited the documentation which was dictated to the scribe in my presence, and it accurately records my words and actions.
--- NOTE | 2019-12-03 13:31 | XCELERA REPORT ---
[address] [facility] [address] Lower Extremity Venous Evaluation Procedure: Color flow and duplex imaging of the veins of the right lower extremity as well as the left Common Femoral vein. Right Sided Venous Evaluation Normal vessel filling wall to wall, compression and augmentation as well as Colour flow down to the infrageniculate veins. Left Sided Venous Evaluation The left common femoral vein is fully compressible. Spontaneous and phasic flow is present in the left common femoral vein. Interpretation Summary No duplex evidence of DVT or obstruction in the right lower extremity nor in the left Common Femoral vein. Name: EVELIA HESS Age: 79 yrs Gender: Male : 1940 Patient Status: Emergency Patient Location: ER Study Date: 11/28/2019 12:25 PM Reason For Study: RLE swelling Ordering Physician: MACI DRAKE Performed By: Aditi Gonzalez : MACI DRAKE > Kd Anguiano
== END 2019-11-28 19:19 | disposition home or self-care (01) ==
LOC: ER 07:17
DX: Z04.3 Encounter for examination and observation following other accident (principal); R60.0 Localized edema; N39.0 Urinary tract infection, site not specified; M47.9 Spondylosis, unspecified; K02.9 Dental caries, unspecified; I10 Essential (primary) hypertension; I69.398 Other sequelae of cerebral infarction; R20.8 Other disturbances of skin sensation; Z95.0 Presence of cardiac pacemaker
CPT/HCPCS: 36415; 70450; 72125; 80053; 81001; 85025; 85610; 93971; 99284

== ENCOUNTER 2020-09-16 21:31 | Emergency (ER) | payer OTHER, MEDICARE ==
--- NOTE | 2020-09-16 23:28 | ER Document Report ---
ED General - General Chief Complaint: Flank Pain Stated Complaint: LEFT LOWER SIDE PAIN Time Seen by Provider: 09/16/20 23:27 Primary Care Provider: EDWIN FLYNN MD [Primary Care Provider] - Follow up as needed TRAVEL OUTSIDE OF THE [place] IN LAST 30 DAYS: No - HPI Notes: 79-year-old male presents with left flank pain. Patient states that "my kidney hurts" and "it feels like my kidney is full of water". He states that the pain was present today however has now completely resolved. Pain did not radiate. He denies hematuria or dysuria. He is incontinent at baseline. Patient son is at bedside who provides more information. States that his father has pretty much been laying in bed for the past week and there is family concerned that he is no longer able to take care of himself. Also states that patient has not had a bowel movement in several days. - Related Data Allergies/Adverse Reactions: No Known Allergies Allergy (Verified 09/17/20 02:38) Past Medical History - General Information source: Patient, Relative - Social History Smoking Status: Never Smoker Chew tobacco use (# tins/day): No Frequency of alcohol use: None Drug Abuse: None Family History: Hypertension Patient has homicidal ideation: No - Past Medical History Cardiac Medical History: Reports: Hx Congestive Heart Failure, Hx Hypercholesterolemia, Hx Hypertension Denies: Hx Heart Attack Pulmonary Medical History: Denies: Hx Asthma, Hx Bronchitis, Hx COPD, Hx Pneumonia, Hx Tuberculosis Neurological Medical History: Reports: Hx Cerebrovascular Accident, Hx Seizures. Denies: Hx Parkinson's Disease Renal/ Medical History: Reports: Hx Benign Prostatic Hyperplasia, Hx Renal Insufficiency. Denies: Hx End Stage Renal Disease, Hx Kidney Stones, Hx Peritoneal Dialysis GI Medical History: Reports: Hx Gastroesophageal Reflux Disease, Hx Colonoscopy, Hx Endoscopy. Denies: Hx Cirrhosis, Hx Ulcer Musculoskeletal Medical History: Denies Hx Arthritis, Denies Hx Multiple Sclerosis, Reports Hx Musculoskeletal Deformity Psychiatric Medical History: Denies: Hx Bipolar Disorder, Hx Depression, Hx Schizophrenia Past Surgical History: Reports: Hx Cardiac Surgery - pacemaker, Other - Pacemaker placement Review of Systems - Review of Systems Constitutional: denies: Fever EENT: No symptoms reported Cardiovascular: denies: Chest pain Respiratory: denies: Short of breath Gastrointestinal: Constipation. denies: Abdominal pain - Denies currently, Vomiting Genitourinary: denies: Dysuria, Hematuria Male Genitourinary: No symptoms reported Musculoskeletal: No symptoms reported Skin: No symptoms reported Hematologic/Lymphatic: No symptoms reported Neurological/Psychological: No symptoms reported Physical Exam - Vital signs Vitals: Temp 98.1 F 09/16/20 21:31 - General General appearance: Appears well, Alert In distress: None - HEENT Head: Normocephalic, Atraumatic Extraocular movements intact: Yes Pupils: PERRL Mucous membranes: Moist - Respiratory Chest status: Nontender Breath sounds: Normal - Cardiovascular Rhythm: Regular Heart sounds: Normal auscultation - Abdominal Distension: No distension Bowel sounds: Normal Tenderness: Nontender - Extremities General lower extremity: No: Edema - Neurological Neuro grossly intact: Yes - Psychological Associated symptoms: Normal affect - Skin Skin Temperature: Warm Course - Re-evaluation Re-evalutation: 79-year-old male presents with left flank pain present today but has since resolved prior to arrival to the emergency department, additionally has not had a bowel movement in several days. On exam patient is alert and pleasant, he is afebrile and hemodynamically stable. His abdomen is soft and without focal area of tenderness, he over tolerates abdominal exam very well. No CVA tenderness. Possible that the pain he was experiencing was related to constipation versus kidney stone versus pyelonephritis. Will obtain noncon to evaluate for stone. Check basic labs. 09/17/20 02:11 I received call from radiology which is concerning for pneumoperitoneum and possible sigmoid volvulus. There is also appearance of a burst fracture as well. I went in to update patient and his son. Patient continues to have tolerated abdominal exam very well. Patient states that he had a fall last week and his son confirms this, son adding that he has not been walking since then. He does not have any midline lumbar tenderness and he has intact strength and sensation to his lower extremities. We will touch base with surgery. 09/17/20 02:[address] findings with Dr. Martinez, he has recommended transfer to a tertiary center under a trauma service 09/17/20 02:27 Called [facility] to initiate transfer 09/17/20 03:03 Patient has been accepted in transfer under trauma surgery, Dr. Klein will go ED to ED. Patient and son updated. Remains hemodynamically stable - Vital Signs Vital signs: Temp Pulse Resp BP Pulse Ox 98.2 F 54 L 17 145/81 H 100 09/16/20 23:48 09/16/20 23:48 09/16/20 23:48 09/16/20 23:48 09/16/20 23:48 - Laboratory Result Diagrams: 09/17/20 00:04 09/17/20 00:04 Laboratory results interpreted by me: 09/17/20 09/17/20 00:04 00:04 RBC 3.87 L Hgb 11.4 L Hct 33.3 L RDW 14.1 H Carbon Dioxide 34 H - Diagnostic Test Radiology reviewed: Image reviewed, Reports reviewed Discharge - Discharge Clinical Impression: Sigmoid volvulus Burst fracture of lumbar vertebra Qualifiers: Encounter type: initial encounter Fracture type: closed Qualified Code(s): S32.001A - Stable burst fracture of unspecified lumbar vertebra, initial enco unter for closed fracture Disposition: [facility] Referrals: EDWIN FLYNN MD [Primary Care Provider] - Follow up as needed
[2020-09-17 00:13] LABS: ABSOLUTE BASOPHILS # (AUTO) 0.1 10^3/uL (0.0-0.2); ABSOLUTE EOSINOPHILS # (AUTO) 0.2 10^3/uL (0.0-0.6); ABSOLUTE LYMPHOCYTES (AUTO) 2.7 10^3/uL (0.5-4.7); ABSOLUTE MONOCYTES (AUTO) 0.5 10^3/uL (0.1-1.4); ABSOLUTE NEUT (AUTO) 3.6 10^3/uL (1.7-8.2); BASOPHILS % (AUTO) 1.1 % (0-2); EOSINOPHILS % (AUTO) 2.9 % (0-6); HEMATOCRIT 33.3 % (37.9-51.0); HEMOGLOBIN 11.4 g/dL (13.5-17.0); LYMPHOCYTES % (AUTO) 38.1 % (13-45); MEAN CORPUSCULAR HEMOGLOBIN 29.4 pg (27.0-33.4); MEAN CORPUSCULAR HGB CONC 34.2 g/dL (32.0-36.0); MEAN CORPUSCULAR VOLUME 86 fl (80-97); MONOCYTES % (AUTO) 7.1 % (3-13); PLATELET COUNT 336 10^3/uL (150-450); RED BLOOD COUNT 3.87 10^6/uL (4.35-5.55); RED CELL DISTRIBUTION WIDTH 14.1 % (11.5-14.0); SEGMENTED NEUTROPHILS % (AUTO) 50.8 % (42-78); TOTAL CELLS COUNTED % (AUTO) 100 %; WHITE BLOOD COUNT 7.2 10^3/uL (4.0-10.5)
[2020-09-17 00:26] LABS: ANION GAP 7 (5-19); BLOOD UREA NITROGEN 15 mg/dL (7-20); CALCIUM 9.5 mg/dL (8.4-10.2); CARBON DIOXIDE 34 mmol/L (22-30); CHLORIDE 98 mmol/L (98-107); GLUCOSE 109 mg/dL (75-110); POTASSIUM 3.7 mmol/L (3.6-5.0)
--- NOTE | 2020-09-17 01:49 | RADIOLOGY REPORT (SQ) ---
EXAM DESCRIPTION: CT ABDOMEN PELVIS WITHOUT IV CONTRAST COMPLETED DATE/TME: 09/17/2020 01:09 CLINICAL HISTORY: 80 years, Male, L flank pain, eval stone COMPARISON: None. TECHNIQUE: Noncontrast images of the abdomen and pelvis were obtained. Images stored on PACS. All CT scanners at this facility use dose modulation, iterative reconstruction, and/or weight based dosing when appropriate to reduce radiation dose to as low as reasonably achievable (ALARA). [facility]: Dose Right [facility]: CareDose [facility]: Dose Right [facility]: Teradose 4D [facility]: [employer] LIMITATIONS: None. FINDINGS: Initial images of the lung bases reveal mild bibasilar atelectasis. There is mild, global cardiomegaly. There is an 8 mm thick pericardial effusion. Pacemaker leads are partially visualized. Arterial calcifications are noted, also involving the coronary arteries. There is no urinary tract calculus or hydronephrosis. There is pneumoperitoneum. There is colonic dilation up to 7.5 cm. Small bowel measures up to 2.8 cm in caliber. There is a redundant sigmoid colon. There is an abnormal segment of sigmoid colonic narrowing within the left lower quadrant with some whirling of the mesenteric vessels for instance around axial image 51, coronal image 25, and sagittal image 41, most consistent with a sigmoid volvulus. There is a moderate amount of colonic stool. No free fluid. There is a burst fracture of L3 with approximately two thirds loss of height and 6 mm bony retropulsion yielding severe spinal canal stenosis. There are also apparent fractures of the bilateral pedicles at this level. There is visualization of fracture lucencies and there is also a paraspinal hematoma suggesting acute to subacute fracture. No other significant finding is identified on this noncontrast study. IMPRESSION: 1. Pneumoperitoneum with findings consistent with sigmoid volvulus. 2. L4 burst fracture with bilateral pedicle involvement and canal stenosis. Features suggest acute subacute injury. Critical call request has been initiated. TECHNICAL DOCUMENTATION: Quality ID # [id number]: Final reports with documentation of one or more dose reduction techniques (e.g., Automated exposure control, adjustment of the mA and/or kV according to patient size, use of iterative reconstruction technique) copyright 2011 [employer]- All Rights Reserved
[2020-09-17] MEDS ORDERED: DEXTROSE 5%-LACTATED RINGERS 1,000 ML IV ONE (02:13)
--- NOTE | 2020-09-17 04:40 | RADIOLOGY REPORT (SQ) ---
EXAM DESCRIPTION: CT HEAD WITHOUT IV CONTRAST COMPLETED DATE/TME: 09/17/2020 04:09 CLINICAL HISTORY: Fall/pain COMPARISON: 11/28/2019 TECHNIQUE: Axial CT of the head obtained from the skull apex to the skull base without contrast. FINDINGS: No acute intracranial hemorrhage identified. No mass, mass effect, shift of the midline, abnormal extra-axial fluid collection or CT evidence of acute ischemic change identified. The ventricular system and sulcal spaces are mildly enlarged compatible with cerebral atrophy. Ex Vacuo dilatation of the right lateral ventricle with encephalomalacia in right temporal lobe. Findings suggest remote right MCA distribution infarction. Scattered areas of hypodensity throughout the supratentorial white matter are nonspecific and may be related to chronic small vessel ischemic change. Mucosal thickening of the paranasal sinuses. Mastoid air cells are well aerated. Right craniotomy. Visualized orbits and globes are unremarkable. Atherosclerotic calcification of the intracranial internal carotid arteries. IMPRESSION: 1. No acute intracranial abnormality by CT criteria. This exam was performed according to our departmental dose-optimization program, which includes automated exposure control, adjustment of the mA and/or kV according to patient size and/or use of iterative reconstruction technique.
--- NOTE | 2020-09-17 04:55 | RADIOLOGY REPORT (SQ) ---
EXAM DESCRIPTION: CT CERVICAL SPINE WITHOUT IV CONTRAST COMPLETED DATE/TME: 09/17/2020 04:09 CLINICAL HISTORY: fall/pain COMPARISON: 11/28/2019 TECHNIQUE: Axial CT of the cervical spine obtained without contrast. FINDINGS: Straightening of the cervical lordosis may be secondary to patient positioning. The atlantoaxial, atlantodental, and occipitoatlantal intervals are preserved. No acute fracture identified. Prevertebral soft tissues are unremarkable. Moderate to severe multilevel loss of intervertebral disc height with endplate spondylosis, facet arthropathy, and uncovertebral spurring. Mild multilevel osseous neural foraminal narrowing. Visualized skull base is intact. No fracture of the visualized facial bones. Visualized mastoid air cells and paranasal sinuses are well aerated. Visualized thyroid is unremarkable. No cervical lymphadenopathy. No pneumothorax in the visualized lung apices. Carotid artery atherosclerosis. IMPRESSION: 1. No acute fracture or subluxation of the cervical spine. 2. Multilevel degenerative change of the cervical spine. This exam was performed according to our departmental dose-optimization program, which includes automated exposure control, adjustment of the mA and/or kV according to patient size and/or use of iterative reconstruction technique.
[2020-09-17 05:00] VITALS: BP 139/91
== END 2020-09-17 04:50 | disposition short-term general hospital (02) ==
LOC: ER 21:31
DX: K56.2 Volvulus (principal); S32.041A Stable burst fracture of fourth lumbar vertebra, initial encounter for closed fracture; W19.XXXA Unspecified fall, initial encounter; M47.812 Spondylosis without myelopathy or radiculopathy, cervical region; K59.00 Constipation, unspecified; I10 Essential (primary) hypertension
CPT/HCPCS: 99285; 96365; 96366; 36415; 85025; 80048; 70450; 72125; 74176; J7121